=== PATIENT | female | born 1955 | race Caucasian/White ===

== ENCOUNTER 2016-12-13 00:11 | Inpatient (IN) | payer OTHER ==
--- NOTE | 2016-12-13 00:58 | PDOC ---
History of Present Illness - History of Present Illness Initial Comments: 12/13/16 00:59 The patient is a 61 year old female with history of hypertension who presents to the ED complaining of nausea and multiple episodes of nonbloody nonbilious vomiting that began last night with associated epigastric discomfort, lightheadedness and generalized weakness. The patient states she ate tilapia which seemed "off" last night prior to the onset of her symptoms. She vomited approximately 3 times last night, now improved. Since then she has been drinking pedialyte and water but continues to feel unwell. Her blood pressure was noted to be around 90/60 at home today. The patient also endorses dysuria, but denies hematuria. She denies fever, chills, or recent illness. She denies constipation or diarrhea. She denies chest pain or shortness of breath. She denies cough or wheezing. No sick contacts or antibiotic use. PCP: Dr. Lorene Samuel <Tuyet Rueda - Last Filed: 12/13/16 01:38> - General History Source: Patient Exam Limitations: No Limitations <Nick Pitts - Last Filed: 12/13/16 02:03> - General Chief Complaint: Blood Pressure Problem Stated Complaint: BLOOD PRESSURE PROBLEM Time Seen by Provider: 12/13/16 00:47 Past History <Tuyet Rueda - Last Filed: 12/13/16 01:38> - Past Medical History HTN: Yes - Psycho/Social/Smoking Cessation Hx Suicidal Ideation: No Smoking History: Never smoked <Nick Pitts - Last Filed: 12/13/16 02:03> - Past Medical History Allergies/Adverse Reactions: Allergies Allergy/AdvReac Type Severity Reaction Status Date / Time No Known Allergies Allergy Verified 12/13/16 00:22 Home Medications: Ambulatory Orders Losartan Potassium [Cozaar -] 50 mg PO DAILY 08/14/16 Review of Systems - Review of Systems Able to Perform ROS?: Yes Comments:: 12/13/16 01:03 GENERAL/CONSTITUTIONAL: No fever or chills. +generalized weakness. HEAD, EYES, EARS, NOSE AND THROAT: No change in vision. No ear pain or discharge. No sore throat CARDIOVASCULAR: +lightheadedness. No chest pain or shortness of breath. RESPIRATORY: No cough, wheezing, or hemoptysis. GASTROINTESTINAL: +nausea, NBNB vomiting (improved), epigastric discomfort. + melena. No diarrhea or constipation. GENITOURINARY: +dysuria. No hematuria. MUSCULOSKELETAL: No joint or muscle swelling or pain. No neck or back pain. SKIN: No rash NEUROLOGIC: No headache, vertigo, loss of consciousness, or change in strength/ sensation. ENDOCRINE: No increased thirst. No abnormal weight change. HEMATOLOGIC/LYMPHATIC: No anemia, easy bleeding, or history of blood clots. ALLERGIC/IMMUNOLOGIC: No hives or skin allergy. <Tuyet Rueda - Last Filed: 12/13/16 01:38> *Physical Exam - Vital Signs Last Vital Signs Temp Pulse Resp BP Pulse Ox 99.3 F 98 H 18 115/48 97 12/13/16 00:19 12/13/16 00:19 12/13/16 00:19 12/13/16 00:19 12/13/16 00:19 - Physical Exam Comments: 12/13/16 01:19 GENERAL: Awake, alert, and fully oriented, in no acute distress HEAD: No signs of trauma EYES: PERRLA, EOMI, sclera anicteric, conjunctiva clear ENT: Auricles normal inspection, hearing grossly normal, nares patent, oropharynx clear without exudates. Dry mucous membranes. NECK: Normal ROM, supple, no lymphadenopathy, JVD, or masses LUNGS: Breath sounds equal, clear to auscultation bilaterally. No wheezes, and no crackles HEART: Regular rate and rhythm, normal S1 and S2, no murmurs, rubs or gallops ABDOMEN: Epigastric tenderness to palpation. Soft, normoactive bowel sounds. No guarding, no rebound. No masses EXTREMITIES: Normal range of motion, no edema. No clubbing or cyanosis. No cords, erythema, or tenderness NEUROLOGICAL: Cranial nerves II through XII grossly intact. Normal speech, normal gait SKIN: Warm, Dry, normal turgor, no rashes or lesions noted. RECTAL: external hemorrhoids, dark brown stool. <Tuyet Rueda - Last Filed: 12/13/16 01:38> - Vital Signs Last Vital Signs Temp Pulse Resp BP Pulse Ox 99.3 F 98 H 18 115/48 97 12/13/16 00:19 12/13/16 00:19 12/13/16 00:19 12/13/16 00:19 12/13/16 00:19 <Nick Pitts - Last Filed: 12/13/16 02:03> Heart Score/ECG Review #1 ECG reviewed & interpreted by me at: 01:25 12/13/16 01:34 NSR 87, submm STD II, aVF, no kahlil, QTC 450 msec <Nick Pitts - Last Filed: 12/13/16 02:03> ED Treatment Course - LABORATORY CBC & Chemistry Diagram: 12/13/16 01:07 12/13/16 01:07 <Tuyet Rueda - Last Filed: 12/13/16 01:38> - LABORATORY CBC & Chemistry Diagram: 12/13/16 01:07 12/13/16 01:07 <Nick Pitts - Last Filed: 12/13/16 02:03> Medical Decision Making - Medical Decision Making 12/13/16 01:12 A portion of this note was documented by scribe services under my direction. I have reviewed the details of the note, within reason, and agree with the documentation with the following case summary and management plan written by me. Patient treated in the ED. Nursing notes are reviewed and incorporated into the medical decision-making. Vital signs reviewed. Peripheral IV access obtained by the nurse, laboratory studies are drawn and sent, reviewed and interpreted by myself. Vital Signs Temp Pulse Resp BP Pulse Ox 99.3 F 98 H 18 115/48 97 12/13/16 00:19 12/13/16 00:19 12/13/16 00:19 12/13/16 00:19 12/13/16 00:19 61-year-old female with past medical history of hypertension presents with nausea, vomiting since yesterday. The patient had eaten some [place] and since then has been feeling unwell, lightheaded and vomiting up to 3 times. Reports some epigastric discomfort with nausea. She reports decreased appetite. She's been feeling lightheaded and generally weak. Denies any chest pain. Patient reported that she took her blood pressure was 93/60 today. I suspect the patient may having food poisoning or acute gastroenteritis. Low blood pressures likely secondary to hypovolemia. We'll give IV fluids and treat symptoms. Obtain labs. Obtain EKG. Workup is negative patient reports feeling better, supportive care and follow-up with PMD. 12/13/16 01:20 Pt is also complaining of dysuria. Will r/o UTI. 12/13/16 01:34 CBC, BMP 12/13/16 01:07 Patient is noted to have hemoglobin 6.1. When the patient was ambulatory today, patient was feeling short of breath on exertion. I have asked the patient whether that she's been having dark stools, which she reports that she has. Patient has no known knowledge of prior GI bleeds. I had initiated protonix bolus and drip for UGIB. Stool occult sent. Stool appeared dark (dark brown) in nature. +external hemorrhoids but no tears. Risks and benefits were discussed with the patient regarding blood transfusions , including infection, blood transfusion reactions. The patient consents for blood transfusion. 2u PRBC ordered. 12/13/16 01:48 Guiac positive. 12/13/16 01:51 CBC, BMP 12/13/16 01:07 12/13/16 01:07 CMP Sodium 140 mmol/L (136-145) 12/13/16 01:07 Potassium 3.5 mmol/L (3.5-5.1) 12/13/16 01:07 Chloride 102 mmol/L (98-107) 12/13/16 01:07 Carbon Dioxide 27 mmol/L (21-32) 12/13/16 01:07 Anion Gap 11 (8-16) 12/13/16 01:07 BUN 30 mg/dL (7-18) H 12/13/16 01:07 Creatinine 0.6 mg/dL (0.55-1.02) 12/13/16 01:07 Creat Clearance w eGFR > 60 (>60) 12/13/16 01:07 Random Glucose 154 mg/dL (74-106) H 12/13/16 01:07 Calcium 7.7 mg/dL (8.5-10.1) L 12/13/16 01:07 Total Bilirubin 0.1 mg/dL (0.2-1.0) L 12/13/16 01:07 AST 10 U/L (15-37) L 12/13/16 01:07 ALT 21 U/L (12-78) 12/13/16 01:07 Total Protein 5.8 g/dl (6.4-8.2) L 12/13/16 01:07 Albumin 2.9 g/dl (3.4-5.0) L 12/13/16 01:07 Lipase 93 U/L (73-393) 12/13/16 01:07 Urine Test Results Urine Color Ltyellow 12/13/16 01:20 Urine Appearance Clear 12/13/16 01:20 Urine pH 5.0 (5.0-8.0) 12/13/16 01:20 Ur Specific [place] 1.024 (1.001-1.035) 12/13/16 01:20 Urine Protein Negative (NEGATIVE) 12/13/16 01:20 Urine Glucose (UA) Negative (NEGATIVE) 12/13/16 01:20 Urine Ketones Negative (NEGATIVE) 12/13/16 01:20 Urine Blood Negative (NEGATIVE) 12/13/16 01:20 Urine Nitrite Negative (NEGATIVE) 12/13/16 01:20 Urine Bilirubin Negative (NEGATIVE) 12/13/16 01:20 Ur Leukocyte Esterase 1+ (NEGATIVE) H 12/13/16 01:20 1+ leuk but with dysuria. Will treat as UTI. Urine culture. Ceftriaxone. Hospitalist paged for admission. 12/13/16 02:[address] Castillo. Accepted under med/surg admission. <Nick Pitts - Last Filed: 12/13/16 02:03> *DC/Admit/Observation/Transfer - Attestations Scribe Attestion: 12/13/16 01:19 Documentation prepared by Tuyet Rueda, acting as medical policy specialist for Nick Pitts MD. <Tuyet Rueda - Last Filed: 12/13/16 01:38> - Discharge Dispostion Admit: Yes <Nick Pitts - Last Filed: 12/13/16 02:03> Diagnosis at time of Disposition: UGIB (upper gastrointestinal bleed) Anemia Qualifiers: Anemia type: unspecified type Qualified Code(s): D64.9 - Anemia, unspecified UTI (urinary tract infection) Qualifiers: Urinary tract infection type: site unspecified Hematuria presence: without hematuria Qualified Code(s): N39.0 - Urinary tract infection, site not specified - Discharge Dispostion Condition at time of disposition: Fair - Referrals Referrals: Lorene Samuel MD [Primary Care Provider] -
[2016-12-13] MEDS ORDERED: ACETAMINOPHEN 325 MG TABLET (FP) PO ONE (00:59)
[2016-12-13] MEDS ORDERED: SODIUM CHLORIDE 1,000 ML IV STA (00:59)
[2016-12-13] MEDS ORDERED: FAMOTIDINE 20 MG/50 ML IVPB 50 ML IVPB ONE ×2 (00:59→01:06)
[2016-12-13] MEDS ORDERED: MAG HYDROX/AL HYDROX/SIMETH 30 ML UNIT-DOSE CUP PO ONE (00:59)
[2016-12-13] MEDS ORDERED: ACETAMINOPHEN 325 MG TABLET (FP) ONE (01:06)
[2016-12-13] MEDS ORDERED: ONDANSETRON 4 MG/2 ML VIAL IVPB ONE (01:14)
[2016-12-13] MEDS ORDERED: MAG HYDROX/AL HYDROX/SIMETH 30 ML UNIT-DOSE CUP ONE (01:16)
[2016-12-13 01:18] LABS: BASOPHIL 0.5 % (0-2.0)
[2016-12-13 01:22] LABS: EOSINOPHIL 1.5 % (0-4.5); MCHC 33.7 g/dl (32.0-36.0); MEAN PLT VOLUME 7.7 fl (7.5-11.1); NEUTROPHILS 65.1 % (42.8-82.8); PLATELET COUNT 241 K/MM3 (134-434); RDW 13.4 % (11.6-15.6); WHITE BLOOD COUNT 11.7 K/mm3 (4.0-10.0)
[2016-12-13] MEDS ORDERED: PANTOPRAZOLE SODIUM 40 MG in SODIUM CHLORIDE 100 ML IVPB ONE (01:32)
[2016-12-13 01:38] LABS: URINE APPEARANCE CLEAR; URINE BILIRUBIN NEGATIVE (NEGATIVE); URINE BLOOD NEGATIVE (NEGATIVE); URINE COLOR LTYELLOW; URINE GLUCOSE (UA) NEGATIVE (NEGATIVE); URINE KETONE NEGATIVE (NEGATIVE); URINE NITRITE NEGATIVE (NEGATIVE); URINE PROTEIN NEGATIVE (NEGATIVE); URINE UROBILINOGEN NEGATIVE E.U./dl (0.2-1.0)
[2016-12-13 01:43] LABS: URINE LEUK ESTERASE 1+ (NEGATIVE)
[2016-12-13 01:44] LABS: ALBUMIN 2.9 g/dl (3.4-5.0); ANION GAP 11 (8-16); BILIRUBIN,TOTAL 0.1 mg/dL (0.2-1.0); CALCIUM 7.7 mg/dL (8.5-10.1); CO2 27 mmol/L (21-32); CREATININE 0.6 mg/dL (0.55-1.02); GLUCOSE,RANDOM 154 mg/dL (74-106); SGOT/AST 10 U/L (15-37); SGPT/ALT 21 U/L (12-78); TOT PROT 5.8 g/dl (6.4-8.2)
[2016-12-13 01:47] LABS: ALK PHOS 56 U/L (45-117); TROPONIN I < 0.02 ng/ml (0.00-0.05)
[2016-12-13] MEDS ORDERED: CEFTRIAXONE 1 GM in DEXTROSE 5%-WATER - 50 ML IVPB ONE (01:48)
[2016-12-13 01:57] LABS: URINE BACTERIA FEW /hpf (NONE SEEN); URINE HYALINE CAST 4 /lpf; URINE MUCUS FEW; URINE RBC 1 /hpf (0-3); URINE WBC 11 /hpf (3-5)
[2016-12-13 02:00] LABS: INR 1.19 (0.82-1.09); PROTHROMBIN TIME (PATIENT) 13.1 SEC (9.98-11.88)
[2016-12-13 02:02] LABS: ACTIVATED PTT 27.5 SECONDS (26.9-34.4)
[2016-12-13] MEDS ORDERED: ONDANSETRON 4 MG/2 ML VIAL ONE (02:05)
--- NOTE | 2016-12-13 02:07 | PN ---
<Panchito Castillo - Last Filed: 12/13/16 02:06> Teaching Attending Note Name of Resident: Evelio Samuel ATTENDING PHYSICIAN STATEMENT I saw and evaluated the patient. I reviewed the resident's note and discussed the case with the resident. I agree with the resident's findings and plan as documented. SUBJECTIVE: OBJECTIVE: ASSESSMENT AND PLAN: <Nicky Zaldivar - Last Filed: 12/13/16 03:36> Teaching Attending Note ATTENDING PHYSICIAN STATEMENT I saw and evaluated the patient. I reviewed the resident's note and discussed the case with the resident. I agree with the resident's findings and plan as documented. SUBJECTIVE: Patient is a 61 yo F with a PMHx of HTN who presents with nausea and multiple episodes of vomiting for one day with associated mild epigastric soreness. Patient had 3 episodes of nonbloody nonbilious vomiting that started last night at 9pm after she ate tilapia. Patient reports her epigastric pain is related to the vomiting. Denies ibuprofen and NSAID use. Never had an EGD. Patient also notes a bitter metallic taste in her mouth for past 4 months. Denies blood in stool or any other bleeding. Patient also reports increased frequency in urination. Denies recent travel. Surgical Hx: Gallbladder removal and 2 caesareans Social Hx: None OBJECTIVE: Last Vital Signs Temp Pulse Resp BP Pulse Ox 98.3 F 93 H 18 128/64 98 12/13/16 03:00 12/13/16 03:00 12/13/16 03:00 12/13/16 03:00 12/13/16 03:30 GENERAL: Awake, alert, and fully oriented, in no acute distress. HEENT: Atraumatic. Moist mucosa. Normocephalic. No sinus tenderness. No LAD. NECK: No JVD. No thyroid masses. Supple. LUNGS: Clear to auscultation bilaterally. No wheezing, rhonchi or rales. HEART: Regular rate and rhythm, normal S1 and S2, no murmurs, rubs or gallops, peripheral pulses normal and equal bilaterally. ABDOMEN: Soft, nontender, normoactive bowel sounds. No guarding, no rebound. No Masses. MUSCULOSKELETAL: No joint tenderness or erythema. No muscle tenderness. Normal muscle bulk and tone. EXTREMITIES: Normal inspection, No edema. No clubbing or cyanosis. Moves all extremities. NEUROLOGICAL: Normal speech, no focal sensorimotor deficits. SKIN: Warm, dry, normal turgor, no rashes or lesions noted. CBCD WBC 11.7 K/mm3 (4.0-10.0) H 12/13/16 01:07 RBC 2.11 M/mm3 (3.60-5.2) L 12/13/16 01:07 Hgb 6.1 GM/dL (10.7-15.3) L* 12/13/16 01:07 Hct 18.1 % (32.4-45.2) L 12/13/16 01:07 MCV 86.0 fl (80-96) 12/13/16 01:07 MCHC 33.7 g/dl (32.0-36.0) 12/13/16 01:07 RDW 13.4 % (11.6-15.6) 12/13/16 01:07 Plt Count 241 K/MM3 (134-434) 12/13/16 01:07 MPV 7.7 fl (7.5-11.1) 12/13/16 01:07 CMP Sodium 140 mmol/L (136-145) 12/13/16 01:07 Potassium 3.5 mmol/L (3.5-5.1) 12/13/16 01:07 Chloride 102 mmol/L (98-107) 12/13/16 01:07 Carbon Dioxide 27 mmol/L (21-32) 12/13/16 01:07 Anion Gap 11 (8-16) 12/13/16 01:07 BUN 30 mg/dL (7-18) H 12/13/16 01:07 Creatinine 0.6 mg/dL (0.55-1.02) 12/13/16 01:07 Creat Clearance w eGFR > 60 (>60) 12/13/16 01:07 Calcium 7.7 mg/dL (8.5-10.1) L 12/13/16 01:07 Total Bilirubin 0.1 mg/dL (0.2-1.0) L 12/13/16 01:07 AST 10 U/L (15-37) L 12/13/16 01:07 ALT 21 U/L (12-78) 12/13/16 01:07 Alkaline Phosphatase 56 U/L (45-117) 04/02/17 01:07 Total Protein 5.8 g/dl (6.4-8.2) L 12/13/16 01:07 Albumin 2.9 g/dl (3.4-5.0) L 12/13/16 01:07 ECG NSR @87 bpm with no T wave inversion or ST elevations ASSESSMENT AND PLAN: Patient is a 61 yo F with a PMHx of HTN who presents with nausea vomiting and epigastric pain found to have symptomatic anemia. 1.) Normocytic anemia likely secondary to upper GI bleed -Send type and screen x2 -Send ferritin iron studies, vitamin B12 level, LDH, haptoglobin, red blood smear -Transfuse 1 unit of PRBC for goal of 7 mg/dl 2.) Likely Upper GI bleed with severe anemia and positive FOBT -NPO -IVF hydration -Protonix 40 mg IV Q 12 -Avoid aspirin and heparin -Send stool for H pylori -Avoid NSAIDS -GI consult for EGD -Chest X-Ray 3.) HTN -Hold losartan due to borderline hypotension 4.) Systolic murmur. No transthoracic echos previously -TTE DVT ppx -Low risk -SCDs Documentation prepared by Nicky Zaldivar, acting as paramedical aide for Panchito Castillo M.D.
[2016-12-13] MEDS ORDERED: PANTOPRAZOLE SODIUM 40 MG VIAL ONE ×2 (02:11→02:57)
[2016-12-13] MEDS ORDERED: CEFTRIAXONE 50 ML ONE (02:11)
--- NOTE | 2016-12-13 03:16 | HP ---
CHIEF COMPLAINT: Nausea and vomiting PCP: Dr. Lorene Samuel HISTORY OF PRESENT ILLNESS: 61 y/o German speaking F w/PMH of HTN presents to ER w/ c/o nausea and vomiting and abdominal pain. History translated by pt's son who was at bedside. Nausea and vomiting began yesterday night and she had 3 episodes of non-bloody, non-bilious vomiting. She states she ate some tilapia but otherwise diet has been regular and not changed. She c/o epigastric soreness which she states is due to her vomiting. She has also had light-headedness and generalized weakness since yesterday night as well. Her son measured her BP last night and it was approximately 94/64 at home. Last BM was day before yesterday and she states that it was normal with no blood in stool. She has also had a bitter taste in her mouth for the last 3-4 months and acid reflux for the last 6 months has taken milk of magnesia to alleviate the acid reflux. She had colonoscopy 3 years ago with no notes of any polyps and was told to f/u in 10 years for next colonoscopy. She denies any recent history of anemia and this is the first time she has had her presenting symptoms. She last saw her PCP in Aug 2016 and no notes of low blood count or anemia were made at that time. She denies any recent travel history or any sick contacts. Pt reported some dysuria over the last 3-4 months as well and states that she drank more water lately to help alleviate the dysuria. ER course was notable for: (1) CXR, EKG, ceftriaxone, iv protonix, UA (1+ LE), Hgb 6.1 (2) (3) Recent Travel: denies PAST MEDICAL HISTORY: HTN PAST SURGICAL HISTORY: cholecystectomy, x2 Social History: Smoking: denies Alcohol: rarely Drugs: denies Family History: denies any family history Allergies No Known Allergies Allergy (Verified 12/13/16 00:22) HOME MEDICATIONS: Home Medications Medication Instructions Recorded Losartan Potassium [Cozaar -] 50 mg PO DAILY 08/14/16 REVIEW OF SYSTEMS CONSTITUTIONAL: generalized weakness Absent: fever, chills, diaphoresis, malaise, loss of appetite, weight change HEENT: Absent: rhinorrhea, nasal congestion, throat pain, throat swelling, difficulty swallowing, mouth swelling, ear pain, eye pain, visual changes CARDIOVASCULAR: lightheadedness Absent: chest pain, syncope, palpitations, irregular heart rate, peripheral edema RESPIRATORY: Absent: cough, shortness of breath, dyspnea with exertion, orthopnea, wheezing, stridor, hemoptysis GASTROINTESTINAL: abd soreness, nausea, vomiting Absent: abdominal distension, diarrhea, constipation, melena, hematochezia GENITOURINARY: dysuria Absent: frequency, urgency, hesitancy, hematuria, flank pain, genital pain MUSCULOSKELETAL: Absent: myalgia, arthralgia, joint swelling, back pain, neck pain SKIN: Absent: rash, itching, pallor HEMATOLOGIC/IMMUNOLOGIC: Absent: easy bleeding, easy bruising, lymphadenopathy, frequent infections ENDOCRINE: Absent: unexplained weight gain, unexplained weight loss, heat intolerance, cold intolerance NEUROLOGIC: Absent: headache, focal weakness or paresthesias, dizziness, unsteady gait, seizure, mental status changes, bladder or bowel incontinence PSYCHIATRIC: Absent: anxiety, depression, suicidal or homicidal ideation, hallucinations. PHYSICAL EXAMINATION GENERAL: Awake, alert, and fully oriented, in no acute distress. HEAD: Normal with no signs of trauma. EYES: extraocular movements intact, sclera anicteric, pallor of conjunctiva. No lid lag. EARS, NOSE, THROAT: Ears normal, nares patent, oropharynx clear without exudates. NECK: Normal range of motion, supple without lymphadenopathy, JVD, or masses. LUNGS: Breath sounds equal, clear to auscultation bilaterally. No wheezes, and no crackles. No accessory muscle use. HEART: Regular rate and rhythm, normal S1 and S2, 3/6 systolic murmur heard in all regions ABDOMEN: Soft, obese, mild epigastric tenderness, not distended, hypoactive bowel sounds, no guarding, no rebound, no masses. No hepatomegaly or splenomegaly. MUSCULOSKELETAL: Normal range of motion at all joints. No bony deformities or tenderness. No CVA tenderness. LOWER EXTREMITIES: 2+ pulses, warm, well-perfused. No calf tenderness. No peripheral edema. NEUROLOGICAL: Cranial nerves II-XII intact. Normal speech. Normal gait. PSYCHIATRIC: Cooperative. Good eye contact. Appropriate mood and affect. SKIN: Warm, dry, normal turgor, no rashes or lesions noted, normal capillary refill. Pallor of skin CBCD WBC 11.7 K/mm3 (4.0-10.0) H 04/02/17 01:07 RBC 2.11 M/mm3 (3.60-5.2) L 12/13/16 01:07 Hgb 6.1 GM/dL (10.7-15.3) L* 12/13/16 01:07 Hct 18.1 % (32.4-45.2) L 12/13/16 01:07 MCV 86.0 fl (80-96) 12/13/16 01:07 MCHC 33.7 g/dl (32.0-36.0) 12/13/16 01:07 RDW 13.4 % (11.6-15.6) 12/13/16 01:07 Plt Count 241 K/MM3 (134-434) 12/13/16 01:07 MPV 7.7 fl (7.5-11.1) 12/13/16 01:07 CMP Sodium 140 mmol/L (136-145) 12/13/16 01:07 Potassium 3.5 mmol/L (3.5-5.1) 12/13/16 01:07 Chloride 102 mmol/L (98-107) 12/13/16 01:07 Carbon Dioxide 27 mmol/L (21-32) 12/13/16 01:07 Anion Gap 11 (8-16) 12/13/16 01:07 BUN 30 mg/dL (7-18) H 12/13/16 01:07 Creatinine 0.6 mg/dL (0.55-1.02) 12/13/16 01:07 Creat Clearance w eGFR > 60 (>60) 12/13/16 01:07 Random Glucose 154 mg/dL (74-106) H 12/13/16 01:07 Calcium 7.7 mg/dL (8.5-10.1) L 12/13/16 01:07 Total Bilirubin 0.1 mg/dL (0.2-1.0) L 12/13/16 01:07 AST 10 U/L (15-37) L 12/13/16 01:07 ALT 21 U/L (12-78) 12/13/16 01:07 Alkaline Phosphatase 56 U/L (45-117) 12/13/16 01:07 Total Protein 5.8 g/dl (6.4-8.2) L 12/13/16 01:07 Albumin 2.9 g/dl (3.4-5.0) L 12/13/16 01:07 CARDIAC ENZYMES Creatine Kinase 50 IU/L (26-192) 12/13/16 01:07 Troponin I < 0.02 ng/ml (0.00-0.05) 12/13/16 01:07 Laboratory Tests 12/13/16 12/13/16 12/13/16 01:07 01:29 03:30 Hemoglobin A1c % Pending Troponin I < 0.02 Lipase 93 Stool Occult Blood Positive Urine Test Results Urine Color Ltyellow 12/13/16 01:20 Urine Appearance Clear 12/13/16 01:20 Urine pH 5.0 (5.0-8.0) 12/13/16 01:20 Ur Specific [place] 1.024 (1.001-1.035) 12/13/16 01:20 Urine Protein Negative (NEGATIVE) 12/13/16 01:20 Urine Glucose (UA) Negative (NEGATIVE) 12/13/16 01:20 Urine Ketones Negative (NEGATIVE) 12/13/16 01:20 Urine Blood Negative (NEGATIVE) 12/13/16 01:20 Urine Nitrite Negative (NEGATIVE) 12/13/16 01:20 Urine Bilirubin Negative (NEGATIVE) 12/13/16 01:20 Ur Leukocyte Esterase 1+ (NEGATIVE) H 12/13/16 01:20 Urine RBC 1 /hpf (0-3) 12/13/16 01:20 Urine WBC 11 /hpf (3-5) 12/13/16 01:20 Ur Epithelial Cells Rare /hpf (FEW) 12/13/16 01:20 Urine Bacteria Few /hpf (NONE SEEN) 12/13/16 01:20 Urine Mucus Few 12/13/16 01:20 Imaging: CXR: taken, image not up yet EKG: NSR @87 bpm with no T wave inversion or ST elevations Active Medications Pantoprazole Sodium 80 mg/ (Sodium Chloride) 100 mls @ 10 mls/hr IVPB Q10H RENETTA PRN Reason: 8 MG/HR Last Admin: 12/13/16 03:26 Dose: 10 mls/hr Sodium Chloride (Normal Saline -) 1,000 mls @ 100 mls/hr IV ASDIR RENETTA Ondansetron HCl (Zofran Injection) 4 mg IVPUSH Q6H PRN PRN Reason: NAUSEA AND/OR VOMITING ASSESSMENT/PLAN: 61 y/o German speaking F w/PMH of HTN presents to ER w/ c/o nausea and vomiting and abdominal pain. Admitted for anemia secondary to GI bleed. -Anemia secondary to GI bleed -FOBT (+), Hgb 6.1, normocytic anemia -IV protonix; NS @ 100ml/hr -f/u iron studies, b12, folic acid, haptoglobin, ldh, uyen, orthostatics -GI consulted -NPO -stool for h pylori -avoid asa, heparin products -nausea: zofran 4 mg iv q6h prn -Transfuse 1 unit at time, f/u CBC after 1st unit, goal Hgb >7 -New onset murmur -possibly secondary to acute anemia -f/u echo -Dysuria/frequency -hyperglycemic, f/u A1C -f/u gonococcal, chlamydia -Elevated BUN -most likely secondary to GI bleed -monitor -HTN -will hold home losartan at this tie -DVT ppx -SCDs, avoid heparin -GI ppx -IV protonix -FEN -NS @ 100ml/hr -electrolytes wnl -NPO Problem List - Problem (1) Anemia Code(s): D64.9 - ANEMIA, UNSPECIFIED Qualifiers: Anemia type: unspecified type Qualified Code(s): D64.9 - Anemia, unspecified (2) Foreign body sensation in throat Code(s): R09.89 - OTH SYMPTOMS AND SIGNS INVOLVING THE CIRC AND RESP SYSTEMS (3) UGIB (upper gastrointestinal bleed) Code(s): K92.2 - GASTROINTESTINAL HEMORRHAGE, UNSPECIFIED (4) UTI (urinary tract infection) Code(s): N39.0 - URINARY TRACT INFECTION, SITE NOT SPECIFIED Qualifiers: Urinary tract infection type: site unspecified Hematuria presence: without hematuria Qualified Code(s): N39.0 - Urinary tract infection, site not specified Visit type - Emergency Visit Emergency Visit: Yes ED Registration Date: 12/13/16 Care time: The patient presented to the Emergency Department on the above date and was hospitalized for further evaluation of their emergent condition. - New Patient This patient is new to me today: Yes Date on this admission: 12/17/16 - Critical Care Critical Care patient: No
[2016-12-13] MEDS: PANTOPRAZOLE SODIUM 80 MG in SODIUM CHLORIDE 100 ML IVPB SCH ×3 (03:26→22:19)
[2016-12-13] MEDS ORDERED: ONDANSETRON 4 MG/2 ML VIAL IVPUSH PRN (04:05)
[2016-12-13] MEDS ORDERED: SODIUM CHLORIDE 1,000 ML IV SCH (04:15)
[2016-12-13 05:04] VITALS: BMI 32.5
--- NOTE | 2016-12-13 09:36 | PN ---
Progress Note, Physician - Current Medication List Current Medications: Active Medications Pantoprazole Sodium 80 mg/ (Sodium Chloride) 100 mls @ 10 mls/hr IVPB Q10H RENETTA PRN Reason: 8 MG/HR Last Admin: 12/13/16 03:26 Dose: 10 mls/hr Ondansetron HCl (Zofran Injection) 4 mg IVPUSH Q6H PRN PRN Reason: NAUSEA AND/OR VOMITING - Objective Vital Signs: Vital Signs Temperature 98.2 F 12/13/16 05:00 Pulse Rate 85 12/13/16 05:00 Respiratory Rate 18 12/13/16 05:27 Blood Pressure 110/52 12/13/16 05:00 O2 Sat by Pulse Oximetry (%) 98 12/13/16 05:27 Constitutional: Yes: Well Nourished, No Distress, Calm Eyes: Yes: WNL, Conjunctiva Clear HENT: Yes: WNL, Atraumatic, Normocephalic Neck: Yes: WNL, Supple, Trachea Midline Cardiovascular: Yes: WNL, Regular Rate and Rhythm Respiratory: Yes: WNL, Regular, CTA Bilaterally Gastrointestinal: Yes: WNL, Normal Bowel Sounds Musculoskeletal: Yes: WNL Extremities: Yes: WNL Edema: No Integumentary: Yes: WNL Neurological: Yes: WNL, Alert, Oriented ...Motor Strength: WNL Psychiatric: Yes: WNL Labs: INR, PTT INR 1.19 (0.82-1.09) H 12/13/16 01:29 Impression/Plan Impression/Plan: 61 year old woman with HTN admitted for acute blood loss anemia due to upper GI bleed GI bleed -pt has been having nausea and was found to be anemic with melanotic stool on rectal exam -for transfusion fo 2 units pRBC -follow up repeat cbc -follow up GI consult -clear liquid diet at this time UTI -pt complaining of dysuria and found to have WBC of 11 -cont ceftriaxone -follow up cultures Visit type - Emergency Visit Emergency Visit: Yes ED Registration Date: 12/13/16 Care time: The patient presented to the Emergency Department on the above date and was hospitalized for further evaluation of their emergent condition. - New Patient This patient is new to me today: Yes Date on this admission: 12/13/16 - Critical Care Critical Care patient: No
[2016-12-13] MEDS ORDERED: PT OWN MED DRAWER 7, Y5N ONE (10:33)
--- NOTE | 2016-12-13 14:04 | CON.GI ---
Consult Consult Specialty:: GI Referred by:: Dr Boyle Reason for Consultation:: Anemia with guaiac (+) stool - History of Present Illness Chief Complaint: N/V History of Present Illness: 61 F with h/o HTN admitted with h/o N/V and epigastric pain. She denies NSAIDs and is a poor historian but does recount dark stools recently. She had a colonoscopy 4 years ago at [facility] and states she had a polyp removed but doesn' t remember who did it. She is currently guaiac (+) and has a BUN of 30 and a Cr of 0.6 suggesting UGIB. On admission, Hgb 6.1. Surgical Hx: cholecystectomy adn C-sect x 2 - History Source History Provided By: Patient, Medical Record Limitations to Obtaining History: No Limitations - Past Medical History Cardio/Vascular: Yes: HTN - Past Surgical History Past Surgical History: Yes: Cholecystectomy, - Alcohol/Substance Use Hx Alcohol Use: No History of Substance Use: reports: None - Smoking History Smoking history: Never smoked Have you smoked in the past 12 months: No Home Medications - Allergies Allergies/Adverse Reactions: Allergies Allergy/AdvReac Type Severity Reaction Status Date / Time No Known Allergies Allergy Verified 12/13/16 00:22 - Home Medications Home Medications: Ambulatory Orders Aspirin [ASA -] 81 mg PO DAILY #7 tab.chew 12/13/16 Losartan Potassium [Cozaar] 25 mg PO DAILY 1 Days 12/13/16 Physical Exam-GI Vital Signs: Vital Signs Temperature 98.2 F 12/13/16 05:00 Pulse Rate 85 12/13/16 05:00 Respiratory Rate 18 12/13/16 05:27 Blood Pressure 110/52 12/13/16 05:00 O2 Sat by Pulse Oximetry (%) 98 12/13/16 05:27 Constitutional: Yes: Well Nourished, Anxious HENT: Yes: Normocephalic Neck: Yes: Supple Cardiovascular: Yes: Regular Rate and Rhythm Respiratory: Yes: CTA Bilaterally Gastrointestinal Inspection: Yes: WNL ...Auscultate: Yes: Normoactive Bowel Sounds ...Palpate: Yes: Soft, Tenderness, Tenderness, Epigastium (mild.) Labs: INR, PTT INR 1.19 (0.82-1.09) H 12/13/16 01:29 CBC, BMP 12/13/16 01:07 12/13/16 01:07 Assessment/Plan UGIB likely, with mild coagulopathy. Unclear etiology NPO Protonix drip FFP x 2 PRBC x 2 EGD in AM
[2016-12-13 16:56] LABS: MCH 30.1 pg (25.7-33.7); MCHC 34.5 g/dl (32.0-36.0); MEAN CELL VOLUME 87.2 fl (80-96); MEAN PLT VOLUME 8.3 fl (7.5-11.1); PLATELET COUNT 173 K/MM3 (134-434); RDW 13.4 % (11.6-15.6); WHITE BLOOD COUNT 9.3 K/mm3 (4.0-10.0)
[2016-12-14 06:28] LABS: BASOPHIL 0.7 % (0-2.0); EOSINOPHIL 2.9 % (0-4.5); MCH 30.4 pg (25.7-33.7); MCHC 34.7 g/dl (32.0-36.0); MEAN CELL VOLUME 87.6 fl (80-96); MEAN PLT VOLUME 7.3 fl (7.5-11.1); NEUTROPHILS 42.8 % (42.8-82.8); PLATELET COUNT 184 K/MM3 (134-434); RDW 13.8 % (11.6-15.6); WHITE BLOOD COUNT 7.7 K/mm3 (4.0-10.0)
[2016-12-14] MEDS: PANTOPRAZOLE SODIUM 80 MG in SODIUM CHLORIDE 100 ML IVPB SCH ×2 (10:06→21:12)
--- NOTE | 2016-12-14 11:28 | MSN ---
Progress Note (short form) - Note Progress Note: Saw patient this AM. Patient was in no apparent distress. Patient complained of no pain overnight and stated that she was not feeling nauseous or lightheaded. Patient denied F/C, N/V, headache, shortness of breath, chest pain, diarrhea, constipation. Patient is tolerating a clear liquid diet now, but after breakfast she will be switched to NPO. Patient will be continued on IV Ceftriaxone for five more days for continual treatment of her UTI. Per GI Consult, an EGD will be done in the late afternoon to determine if patient has upper GI Bleed Current Medications Generic Name Dose Route Start Last Admin Trade Name Freq PRN Reason Stop Dose Admin Pantoprazole Sodium 80 mg/ 100 mls @ 10 mls/hr 12/13/16 01:45 12/14/16 10:06 Sodium Chloride IVPB 10 mls/hr Q10H RENETTA Administration 8 MG/HR Ondansetron HCl 4 mg 12/13/16 04:05 Zofran Injection IVPUSH Q6H PRN NAUSEA AND/OR VOMITING Vital Signs Period Temp Pulse Resp BP Sys/Sánchez Pulse Ox Last 24 Hr 97.9 F-99.3 F 67-88 18-19 106-121/54-71 96 PHYSICAL EXAM GENERAL: Awake, alert, and oriented. 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 vaginalis (TUSHAR) Cancelled Blood Type O POSITIVE Antibody Screen Negative Direct Antiglob Test Negative Crossmatch See Detail See Detail 12/13/16 12/14/16 15:50 06:00 WBC 9.3 7.7 RBC 2.47 L 2.42 L Hgb 7.4 L D 7.4 L Hct 21.6 L D 21.2 L MCV 87.2 87.6 MCHC 34.5 34.7 RDW 13.4 13.8 Plt Count 173 D 184 MPV 8.3 7.3 L D Neutrophils % 42.8 D Lymphocytes % 45.4 H D Monocytes % 8.2 Eosinophils % 2.9 D Basophils % 0.7 Iron TIBC T. vaginalis (TUSHAR) Blood Type Antibody Screen Direct Antiglob Test Crossmatch Imaging: CXR: New congestive changes, no other changes since last CXR 04/10/10 EKG: Unremarkable ASSESSMENT AND PLAN 61 y/o F with PMHx of HTN presents to ER c/o nausea/vomiting and abdominal pain. Admitted for anemia secondary to possible upper GI bleed 1. Anemia secondary to Upper GI Bleed - Hb 6.1 on admission, already given 2x pRBC, FFPs - Hb 7.4 this AM, transfuse if less than 7 - IV Protonix drip to be continued - Pt on clear liquid diet this AM, will transition to NPO after breakfast - Per GI Consult, EGD to be done in late afternoon - Continue to monitor labs, vitals 2. UTI - WBC 11.7 on admission - WBC 7.7 now, patient afebrile - Patient to be continued on IV Ceftriaxone for five more days - Continue to monitor labs, vitals 3. HTN - Hold Losartan 4. DVT PPx - SCDs Dispo: EGD to be done this afternoon
--- NOTE | 2016-12-14 12:30 | PN ---
Progress Note, Physician - Current Medication List Current Medications: Active Medications Pantoprazole Sodium 80 mg/ (Sodium Chloride) 100 mls @ 10 mls/hr IVPB Q10H RENETTA PRN Reason: 8 MG/HR Last Admin: 12/14/16 10:06 Dose: 10 mls/hr Ceftriaxone Sodium (Rocephin 1gm Ivpb (Pre-Docked)) 50 mls @ 100 mls/hr IVPB DAILY RENETTA Ondansetron HCl (Zofran Injection) 4 mg IVPUSH Q6H PRN PRN Reason: NAUSEA AND/OR VOMITING - Objective Vital Signs: Vital Signs Temperature 98.5 F 12/14/16 06:00 Pulse Rate 67 12/14/16 06:00 Respiratory Rate 18 12/14/16 06:00 Blood Pressure 121/71 12/14/16 06:00 O2 Sat by Pulse Oximetry (%) 96 12/13/16 21:00 Constitutional: Yes: Well Nourished, No Distress, Calm Eyes: Yes: WNL, Conjunctiva Clear HENT: Yes: WNL, Atraumatic, Normocephalic Neck: Yes: WNL, Supple, Trachea Midline Cardiovascular: Yes: WNL, Regular Rate and Rhythm Respiratory: Yes: WNL, Regular, CTA Bilaterally Gastrointestinal: Yes: WNL, Normal Bowel Sounds Musculoskeletal: Yes: WNL Extremities: Yes: WNL Edema: No Integumentary: Yes: WNL Neurological: Yes: WNL, Alert, Oriented ...Motor Strength: WNL Psychiatric: Yes: WNL Labs: CBC, BMP 12/14/16 06:00 INR, PTT INR 1.19 (0.82-1.09) H 12/13/16 01:29 Impression/Plan Impression/Plan: 61 year old woman with HTN admitted for acute blood loss anemia due to upper GI bleed GI bleed -pt has been having nausea and was found to be anemic with melanotic stool on rectal exam -s/p transfusion fo 2 units pRBC but Hb only increased to 7.4 so will transfuse one more unit -GI consult appreciated; for EGD today UTI -pt complaining of dysuria and found to have WBC of 11 -cont ceftriaxone -follow up cultures Visit type - Emergency Visit Emergency Visit: Yes ED Registration Date: 12/13/16 Care time: The patient presented to the Emergency Department on the above date and was hospitalized for further evaluation of their emergent condition. - New Patient This patient is new to me today: No - Critical Care Critical Care patient: No
--- NOTE | 2016-12-14 13:23 | PN ---
Physical Exam: SUBJECTIVE: Patient seen and examined Pt is awake, alert and orineted no abdominal pain no n/v no melena, no hematochezia no weakness, no fatigue OBJECTIVE: Vital Signs Period Temp Pulse Resp BP Sys/Sánchez Pulse Ox Last 24 Hr 98.5 F-99.3 F 67-84 18-19 106-121/54-71 96 GENERAL: The patient is awake, alert, and fully oriented, in no acute distress. HEAD: Normal with no signs of trauma. EYES: PERRL, extraocular movements intact, sclera anicteric, conjunctiva clear. No ptosis. ENT: Ears normal, nares patent, oropharynx clear without exudates, moist mucous membranes. NECK: Trachea midline, full range of motion, supple. LUNGS: Breath sounds equal, clear to auscultation bilaterally, no wheezes, no crackles, no accessory muscle use. HEART: Regular rate and rhythm, S1, S2 with systolic murmur ABDOMEN: Soft,epigastric tender, nondistended, normoactive bowel sounds, no guarding, no rebound, no hepatosplenomegaly, no masses. EXTREMITIES: 2+ pulses, warm, well-perfused, no edema. NEUROLOGICAL: Normal speech, gait not observed. PSYCH: Normal mood, normal affect. SKIN: Warm, dry, normal turgor, no rashes or lesions noted Laboratory Results - last 24 hr 12/13/16 12/13/16 12/13/16 06:00 08:30 15:50 WBC 9.3 RBC 2.47 L Hgb 7.4 L D Hct 21.6 L D MCV 87.2 MCHC 34.5 RDW 13.4 Plt Count 173 D MPV 8.3 Neutrophils % Lymphocytes % Monocytes % Eosinophils % Basophils % Iron Cancelled TIBC Cancelled T. vaginalis (TUSHAR) Cancelled Direct Antiglob Test Negative Crossmatch See Detail 12/14/16 06:00 WBC 7.7 RBC 2.42 L Hgb 7.4 L Hct 21.2 L MCV 87.6 MCHC 34.7 RDW 13.8 Plt Count 184 MPV 7.3 L D Neutrophils % 42.8 D Lymphocytes % 45.4 H D Monocytes % 8.2 Eosinophils % 2.9 D Basophils % 0.7 Iron TIBC T. vaginalis (TUSHAR) Direct Antiglob Test Crossmatch Active Medications Generic Name Dose Route Start Last Admin Trade Name Freq PRN Reason Stop Dose Admin Pantoprazole Sodium 80 mg/ 100 mls @ 10 mls/hr 12/13/16 01:45 12/14/16 10:06 Sodium Chloride IVPB 10 mls/hr Q10H RENETTA Administration 8 MG/HR Ceftriaxone Sodium 50 mls @ 100 mls/hr 12/14/16 12:15 Rocephin 1gm Ivpb (Pre-Docked) IVPB DAILY RENETTA Ondansetron HCl 4 mg 12/13/16 04:05 Zofran Injection IVPUSH Q6H PRN NAUSEA AND/OR VOMITING CBC, BMP 12/14/16 06:00 12/13/16 01:07 ASSESSMENT/PLAN: 61 year old female with pmh of HTN, Acid Reflux present to the ED with complaint of N/V, abdominal pain and epigastric tenderness Pt was found to have a hgb of 6.1 Anemia r/o upper GI bleeding Hbg 6.1 in ED. received 2 unit PRBC. upon repeat hgb was 7.4 One more unit will be given GI consult on the case, Dr Luong EGD scheduled for 2 pm NPO Protonix drip IV fluid with normal saline 100ml/h Zofran PRN No ASA or anticoagulants Will trend CBC Dysuria r/o UTI UA positive for leuk est, wbc 11, bacteria pending chlamydia Amp DNA Pending Gonnorhea TUSHAR T vaginalis TUSHAR urine culture pending ceftriaxone 1 gm Iv daily Systolic Murmur likely rt to anemia Echo was ordered HTN Hold Losartan DVT prophylaxis: SCD FEN Fluid: NS at 100ml/h Electrolytes: no abnormalities Nutrition: NPO Disposition: pending EGD, waiting for hgb to stabilized Visit type - Emergency Visit Emergency Visit: Yes ED Registration Date: 12/13/16 Care time: The patient presented to the Emergency Department on the above date and was hospitalized for further evaluation of their emergent condition. - New Patient This patient is new to me today: Yes - Critical Care Critical Care patient: No - Discharge Referral Referred to [facility] Med P.C.: No
[2016-12-14] MEDS ORDERED: PROPOFOL 20 ML ONE ×2 (13:50)
[2016-12-14] MEDS ORDERED: LIDOCAINE HCL/PF 2% SDV 5ML VIAL ONE (13:50)
--- NOTE | 2016-12-14 14:59 | PN ---
Progress Note (short form) - Note Progress Note: ADDENDUM: S/P EGD with finding of ulcer in the duodenal bulb. No visible vessel and no bleeding. Biopsies taken from the hypertrophic tissue surrounding the ulcer. A small polyp was removed from the GE junction. Await path. Resume diet. Continue protonix IV.
[2016-12-14] MEDS: CEFTRIAXONE 50 ML IVPB SCH (15:30)
[2016-12-15] MEDS: PANTOPRAZOLE SODIUM 80 MG in SODIUM CHLORIDE 100 ML IVPB SCH ×2 (05:05→06:50)
--- NOTE | 2016-12-15 07:10 | EKG ---
Test Reason : Blood Pressure : / mmHG Vent. Rate : 087 BPM Atrial Rate : 087 BPM P-R Int : 156 ms QRS Dur : 086 ms QT Int : 374 ms P-R-T Axes : 051 027 054 degrees QTc Int : 450 ms NORMAL SINUS RHYTHM NONSPECIFIC ST ABNORMALITY INFERIOR LEADS ABNORMAL ECG WHEN COMPARED WITH ECG OF 10-APR-2010 02:22, NONSPECIFIC T WAVE ABNORMALITY Confirmed by CHANCE STARR MD ([id number]) on 12/15/2016 7:10:12 AM Referred By: Confirmed By:CHANCE STARR MD
[2016-12-15 08:15] LABS: MCH 29.8 pg (25.7-33.7); MCHC 34.2 g/dl (32.0-36.0); MEAN CELL VOLUME 87.3 fl (80-96); MEAN PLT VOLUME 7.4 fl (7.5-11.1); PLATELET COUNT 209 K/MM3 (134-434); RDW 14.6 % (11.6-15.6); WHITE BLOOD COUNT 7.5 K/mm3 (4.0-10.0)
[2016-12-15] MEDS: CEFTRIAXONE 50 ML IVPB SCH (10:01)
--- NOTE | 2016-12-15 12:30 | DS ---
Physical Exam: SUBJECTIVE: Patient seen and examined OBJECTIVE: Vital Signs Period Temp Pulse Resp BP Sys/Sánchez Pulse Ox Last 24 Hr 98.7 F-98.9 F 60-74 16-20 101-149/52-67 98-100 PHYSICAL EXAM LABS Laboratory Results - last 24 hr 12/15/16 07:45 WBC 7.5 RBC 2.97 L D Hgb 8.9 L D Hct 25.9 L D MCV 87.3 MCHC 34.2 RDW 14.6 Plt Count 209 MPV 7.4 L CBC, BMP 12/15/16 07:45 12/13/16 01:07 HOSPITAL COURSE: Date of Admission:12/13/16 61 y/o Belgian speaking F w/PMH of HTN presents to ER w/ c/o nausea and vomiting and abdominal pain. History translated by pt's son who was at bedside. Nausea and vomiting began yesterday night and she had 3 episodes of non-bloody, non-bilious vomiting. She states she ate some tilapia but otherwise diet has been regular and not changed. She c/o epigastric soreness which she states is due to her vomiting. She has also had light-headedness and generalized weakness since yesterday night as well. Her son measured her BP last night and it was approximately 94/64 at home. Last BM was day before yesterday and she states that it was normal with no blood in stool. She has also had a bitter taste in her mouth for the last 3-4 months and acid reflux for the last 6 months has taken milk of magnesia to alleviate the acid reflux. She had colonoscopy 3 years ago with no notes of any polyps and was told to f/u in 10 years for next colonoscopy. She denies any recent history of anemia and this is the first time she has had her presenting symptoms. She last saw her PCP in Aug 2016 and no notes of low blood count or anemia were made at that time. She denies any recent travel history or any sick contacts. Pt reported some dysuria over the last 3-4 months as well and states that she drank more water lately to help alleviate the dysuria. ER course was notable for:(1) CXR, EKG, ceftriaxone, iv protonix, UA (1+ LE), Hgb 6.1 61 year old female with pmh of HTN, Acid Reflux present to the ED with complaint of N/V, abdominal pain and epigastric tenderness. Pt was found to have a hgb of 6.1. Pt was disgnosed with Anemia r/o upper GI bleeding. The Hbg 6.1 in ED. received 2 unit PRBC. upon repeat hgb was 7.4. One more unit was given yesterday. Pt was placed NPO, on protonix drip, Normal saline IV fluid at 100ml/h. GI consult on the case, Dr Luong. EGD was done it showed ulcer at the duodenal Bulb and small polyp at the GE junction. Biopsies were taken and sent for pathology. No ASA or anticoagulants. Pt will follow up with Dr Luong within a week to get the pathology report and get further treatment. Pt will be on Protonix PO in the meantime for 14 days. Pt also c/o dysuria . A disgnosis of Dysuria r/o UTI was made. UA positive for leuk est, wbc 11, bacteria. Pt was treated with ceftriaxone 1 gm Iv daily for 3 days. Urine culture was negative. On admission chlamydia Amp DNA, Gonnorhea TUSHAR, T vaginalis TUSHAR was sent pending results.Will follow up result and call if treatment is needed. Resume Losartan. follow up with Primary care physician within a week Date of Discharge: 12/15/16 Minutes to complete discharge: 40 Discharge Summary Reason For Visit: ANEMIA, UTI, UGIB Current Active Problems Anemia (Acute) UGIB (upper gastrointestinal bleed) (Acute) UTI (urinary tract infection) (Acute) Condition: Stable - Instructions Diet, Activity, Other Instructions: Discharge Home Resume home activity Resume home diet, avoid spicy, irritating food. Start Protonix 40mg orally twice per day Hold Aspirin until your cardiology consultant say it is ok to resume it Follow up with your primary care physician Follow up with Gastroeneterologist within 1 week to get the pathology result of your EGD and further treatment for your duodenal ulcer If you start having a fatigue, dizziness, generalized weakness. If you start having black stool, bloody stool, bloody vomitus, please call your Primary care physician, [employer] Generating [employer] or come back to the emergency department Referrals: Frederic Luong MD [Staff Physician] - 1 Week Lorene Samuel MD [Primary Care Provider] - 1 Week Disposition: HOME - Home Medications Comprehensive Discharge Medication List: Ambulatory Orders Aspirin [ASA -] 81 mg PO DAILY #7 tab.chew 12/13/16 Losartan Potassium [Cozaar] 25 mg PO DAILY 1 Days 12/13/16 This patient is new to me today: Yes Emergency Visit: Yes ED Registration Date: 12/13/16 Care time: The patient presented to the Emergency Department on the above date and was hospitalized for further evaluation of their emergent condition. Critical Care patient: No - Discharge Referral Referred to [facility] Med P.C.: No
[2016-12-15 12:49] VITALS: BP 130/65; PULSE 68; TEMP 98.4
--- NOTE | 2016-12-15 16:56 | PN ---
Teaching Attending Note Name of Resident: Kole Durant ATTENDING PHYSICIAN STATEMENT I saw and evaluated the patient. I reviewed the resident's note and discussed the case with the resident. I agree with the resident's findings and plan as documented. SUBJECTIVE:currently asymptomatic. tolerating diet. denies CP, SOB, fever, chills, hemoptysis, melena or BRBPR OBJECTIVE: Last Vital Signs Temp Pulse Resp BP Pulse Ox 98.4 F 68 18 130/65 98 12/15/16 11:00 12/15/16 11:00 12/15/16 11:00 12/15/16 11:12/15/16 09:00 General NAD abdomen soft NT/ND ASSESSMENT AND PLAN: 61yo F with PMH HTN presented to the ER and was admitted for further evaluation of their emergent condition 1. Upper GI bleed- s/p EGD yesterday with duodenal ulcer no bleeding or vessel appreciated. will need to f/u with GI for results of Bx. tolerating diet. will convert PPI to po BID. 2. Acute blood loss anemia- s/p 3 units PRBC and 2 FFP this admission with good response. Hgb remained stable. will cont to hold asa until can have repeat EGD to verify improvement in ulcer and re-start at PMD discretion 3. urinary frequency- Symptoms resolved. Ceftriaxone day 3 today. will d/c abx after today 4. D/c home today with GI follow up.
--- NOTE | 2016-12-16 13:55 | PATH ---
Surgical Pathology Report Patient Name: LAURA KANG [facility]. Rec. #: [id number] /Age/Gender: 1955 (Age: 61) / F Account: [id number] Location: [address] [place] [id number] Taken: 12/14/2016 Received: 12/15/2016 Reported: 12/16/2016 Physicians: Petey Espitia Specimen(s) Received A: BX DUODENAL BULB B: BX GE JUNCTION Clinical History GI bleed Polyp at GE junction, ulcer at duodenal bulb Final Diagnosis A. DUODENAL BULB, BIOPSY: DUODENAL MUCOSA WITH FOCAL ACTIVE AND CHRONIC INFLAMMATION, DONAVAN'S GLANDS HYPERPLASIA AND FOCAL GASTRIC METAPLASIA WITH FOCAL SURFACE EROSION CONSISTENT WITH ACTIVE PEPTIC DUODENITIS. NO HISTOLOGIC EVIDENCE OF GLUTEN SENSITIVE ENTEROPATHY (CELIAC DISEASE). B. GE JUNCTION, POLYP, BIOPSY: POLYPOID FRAGMENTS OF COLUMNAR GASTRIC-TYPE MUCOSA WITH ACUTE AND CHRONIC INFLAMMATION AND SURFACE EROSION. NO SQUAMOUS EPITHELIUM PRESENT. NO INTESTINAL METAPLASIA (MORTON'S ESOPHAGUS) OR DYSPLASIA IDENTIFIED. Electronically Signed Avni Hsu M.D. Gross Description A. Received in formalin, labeled "biopsy duodenal bulb" are 2 jorge, irregular portions of soft tissue measuring 0.1 and 0.3 cm in greatest dimension. The specimens are submitted in toto in one cassette. B. Received in formalin, labeled "biopsy polyp at GE junction" is a jorge, irregular portion of soft tissue measuring 0.3 cm in greatest dimension. The specimen is submitted in toto in one cassette. 12/15/201612/15/2016
== END 2016-12-15 13:39 | disposition home or self-care (01) | DRG 253 ==
LOC: JER 00:11 → JERBED 01:52 → J5S 04:44
PROVIDERS: ADMIT Internal Medicine; ATTEND Internal Medicine
PROC: 30233N1 Transfusion of Nonautologous Red Blood Cells into Peripheral Vein, Percutaneous Approach (ICD-10-PCS; 2016-12-13)
PROC: 30233L1 Transfusion of Nonautologous Fresh Plasma into Peripheral Vein, Percutaneous Approach (ICD-10-PCS; 2016-12-13)
PROC: 30233K1 Transfusion of Nonautologous Frozen Plasma into Peripheral Vein, Percutaneous Approach (ICD-10-PCS; 2016-12-13)
PROC: 0DB98ZX Excision of Duodenum, Via Natural or Artificial Opening Endoscopic, Diagnostic (ICD-10-PCS; 2016-12-14)
PROC: 0DB58ZX Excision of Esophagus, Via Natural or Artificial Opening Endoscopic, Diagnostic (ICD-10-PCS; principal; 2016-12-14 14:00)
DX: K92.2 Gastrointestinal hemorrhage, unspecified (principal); N39.0 Urinary tract infection, site not specified; I10 Essential (primary) hypertension; D62 Acute posthemorrhagic anemia; K26.9 Duodenal ulcer, unspecified as acute or chronic, without hemorrhage or perforation; K22.8 Other specified diseases of esophagus; D68.9 Coagulation defect, unspecified; K29.80 Duodenitis without bleeding
CPT/HCPCS: 36415; 36430; 71010-TC; 80053; 81003; 81015; 82272; 82550; 83036; 83690; 84484; 85025; 85027; 85610; 85730; 86850; 86880; 86900; 86901; 86922; 87086; 87491; 87591; 88305-TC; 93005; 93010; 93306-TC; 99284-25; P9017; P9038; P9058

== ENCOUNTER 2017-02-25 12:40 | Emergency (ER) | payer OTHER ==
[2017-02-25 12:47] VITALS: BMI 32.1
[2017-02-25] MEDS ORDERED: ACETAMINOPHEN 325 MG TABLET (FP) ONE (13:25)
[2017-02-25] MEDS ORDERED: ACETAMINOPHEN 325 MG TABLET (FP) PO ONE (13:27)
[2017-02-25] MEDS ORDERED: SODIUM CHLORIDE 1,000 ML IV STA (15:33)
[2017-02-25 15:56] LABS: EOSINOPHIL 0.4 % (0-4.5); MCH 28.6 pg (25.7-33.7); MCHC 33.2 g/dl (32.0-36.0); MEAN PLT VOLUME 7.9 fl (7.5-11.1); NEUTROPHILS 67.3 % (42.8-82.8); PLATELET COUNT 297 K/MM3 (134-434); RDW 13.5 % (11.6-15.6); WHITE BLOOD COUNT 9.2 K/mm3 (4.0-10.0)
[2017-02-25 16:19] LABS: ALBUMIN 3.8 g/dl (3.4-5.0); ANION GAP 9 (8-16); BILIRUBIN,TOTAL 0.6 mg/dL (0.2-1.0); CALCIUM 8.9 mg/dL (8.5-10.1); CO2 26 mmol/L (21-32); CREATININE 0.8 mg/dL (0.55-1.02); GLUCOSE,RANDOM 108 mg/dL (74-106); SGOT/AST 14 U/L (15-37); SGPT/ALT 26 U/L (12-78)
[2017-02-25 16:21] LABS: ALK PHOS 76 U/L (45-117); TROPONIN I < 0.02 ng/ml (0.00-0.05)
[2017-02-25 16:22] LABS: URINE APPEARANCE CLEAR; URINE BILIRUBIN NEGATIVE (NEGATIVE); URINE COLOR YELLOW; URINE GLUCOSE (UA) NEGATIVE (NEGATIVE); URINE KETONE NEGATIVE (NEGATIVE); URINE NITRITE NEGATIVE (NEGATIVE); URINE PROTEIN NEGATIVE (NEGATIVE); URINE UROBILINOGEN NEGATIVE E.U./dl (0.2-1.0)
[2017-02-25 16:35] LABS: VENOUS BLOOD GAS HCO3 19.8 meq/L (19-25); VENOUS PH 7.34 (7.32-7.42)
[2017-02-25 16:36] LABS: URINE BLOOD 2+ (NEGATIVE); URINE LEUK ESTERASE TRACE (NEGATIVE)
[2017-02-25 16:45] VITALS: TEMP 98.7
[2017-02-25 16:45] LABS: URINE MUCUS RARE; URINE RBC <1 /hpf (0-3); URINE WBC 3 /hpf (3-5)
--- NOTE | 2017-02-25 17:12 | PDOC ---
History of Present Illness - General Chief Complaint: Cold Symptoms Stated Complaint: FEVER Time Seen by Provider: 02/25/17 15:03 History Source: Patient Exam Limitations: No Limitations - History of Present Illness Initial Comments: 02/25/17 15:06 61-year-old female presents to the ED with complaints of subjective fever, chills, cough myalgia, and pruritic rash to bilateral arms. Patient denies recent travel, recent illness, recent sick contacts, or medical history. Patient states has not taken anything for the above and decided come to the ER secondary to duration of symptoms. Patient denies shortness of breath, abdominal pain, dysuria, diarrhea, sore throat, ear pain, neck stiffness, lower extremity edema, or nausea. Patient states has been tolerating food without difficulty. Timing/Duration: reports: week Severity: reports: moderate Possible Cause: Yes: no prior episodes Modifying Factors: improves with: coughing Associated Symptoms: reports: cough, fever/chills, muscle aches Past History - Travel Traveled outside of the country in the last 30 days: No Close contact w/someone who was outside of country & ill: No - Past Medical History Allergies/Adverse Reactions: Allergies Allergy/AdvReac Type Severity Reaction Status Date / Time No Known Allergies Allergy Verified 02/25/17 12:45 Home Medications: Ambulatory Orders Losartan Potassium [Cozaar] 25 mg PO DAILY 1 Days 12/13/16 Ferrous Sulfate [Feosol] 325 mg PO DAILY #30 tablet 12/15/16 Pantoprazole Sodium [Protonix -] 40 mg PO BID #28 tablet.ec 12/15/16 HTN: Yes - Surgical History Cholecystectomy: Yes - Psycho/Social/Smoking Cessation Hx Suicidal Ideation: No Smoking History: Never smoked Have you smoked in the past 12 months: No Hx Alcohol Use: No Drug/Substance Use Hx: No Substance Use Type: None Patient Lives Alone: No Lives with/in: spouse/SO Review of Systems - Review of Systems Able to Perform ROS?: Yes Constitutional: Yes: Chills, Fever, Malaise, Weakness HEENTM: No: Symptoms Reported Respiratory: Yes: Cough Cardiac (ROS): No: Symptoms Reported ABD/GI: No: Symptoms Reported : No: Symptoms Reported Musculoskeletal: Yes: Joint Pain, Muscle Pain Integumentary: Yes: Pruritus, Rash Neurological: No: Headache, Dizziness Endocrine: No: Symptoms Reported Hematologic/Lymphatic: No: Symptoms Reported *Physical Exam - Vital Signs Last Vital Signs Temp Pulse Resp BP Pulse Ox 98.7 F 82 20 145/80 98 02/25/17 16:42 02/25/17 16:42 02/25/17 16:42 02/25/17 16:42 02/25/17 16:42 - Physical Exam General Appearance: Yes: Nourished, Appropriately Dressed. No: Apparent Distress HEENT: positive: EOMI, JAYESH, TMs Normal, Pharynx Normal. negative: Pale Conjunctivae Neck: positive: Supple. negative: Lymphadenopathy (R), Lymphadenopathy (L), Rigidity, Tender midline Respiratory/Chest: positive: Lungs Clear, Normal Breath Sounds. negative: Respiratory Distress, Accessory Muscle Use Cardiovascular: positive: Regular Rhythm, Regular Rate. negative: Murmur Gastrointestinal/Abdominal: positive: Soft. negative: Tenderness Extremity: positive: Normal Capillary Refill. negative: Pedal Edema Integumentary: positive: Warm, Moist, Rash (noted scattered papular rash to bilateral arms sparing the palms ) Neurologic: positive: Motor Strength 5/5 Heart Score/ECG Review - History History: Slightly suspicious - Electrocardiogram EKG: Normal - Age Age: 45-65 - Risk Factors Based on the list above the patient has:: No risk factors known - Troponin Troponin: </= normal limit - Score Heart Score - Total: 1 - ECG Intrepretation Rhythm: Regular Rhythm (rate 72. no acute changes.) ED Treatment Course - LABORATORY CBC & Chemistry Diagram: 02/25/17 15:40 02/25/17 15:40 - ADDITIONAL ORDERS Additional order review: Laboratory Results 02/25/17 02/25/17 02/25/17 16:20 15:40 15:40 VBG pH 7.34 POC VBG pCO2 37.3 L POC VBG pO2 59.4 H Mixed VBG HCO3 19.8 Sodium 133 L Potassium 4.0 Chloride 98 Carbon Dioxide 26 Anion Gap 9 BUN 17 D Creatinine 0.8 D Creat Clearance w eGFR > 60 Random Glucose 108 H D Lactic Acid 1.4 Calcium 8.9 Total Bilirubin 0.6 D AST 14 L D ALT 26 D Alkaline Phosphatase 76 D Creatine Kinase 52 Troponin I < 0.02 Total Protein 8.0 D Albumin 3.8 D Urine Color Urine Appearance Urine pH Urine Protein Urine Glucose (UA) Urine Ketones Urine Blood Urine Nitrite Urine Bilirubin Urine Urobilinogen Ur Leukocyte Esterase Urine RBC Urine WBC Ur Epithelial Cells Urine Mucus 02/25/17 15:40 VBG pH POC VBG pCO2 POC VBG pO2 Mixed VBG HCO3 Sodium Potassium Chloride Carbon Dioxide Anion Gap BUN Creatinine Creat Clearance w eGFR Random Glucose Lactic Acid Calcium Total Bilirubin AST ALT Alkaline Phosphatase Creatine Kinase Troponin I Total Protein Albumin Urine Color Yellow Urine Appearance Clear Urine pH 5.0 Urine Protein Negative Urine Glucose (UA) Negative Urine Ketones Negative Urine Blood 2+ H Urine Nitrite Negative Urine Bilirubin Negative Urine Urobilinogen Negative Ur Leukocyte Esterase Trace H D Urine RBC <1 Urine WBC 3 Ur Epithelial Cells Rare Urine Mucus Rare 02/25/17 15:40 RBC 4.12 D MCV 86.0 MCHC 33.2 RDW 13.5 MPV 7.9 Neutrophils % 67.3 D Lymphocytes % 21.0 D Monocytes % 10.3 H Eosinophils % 0.4 D Basophils % 1.0 - RADIOLOGY Radiology Studies Ordered: Category Date Time Status CHEST X-RAY PORTABLE* [RAD] Stat Radiology 02/25/17 15:33 Completed - Medications Given in the ED: ED Medications Discontinued Medications Generic Name Dose Route Start Last Admin Trade Name Freq PRN Reason Stop Dose Admin Acetaminophen 650 mg 02/25/17 13:27 02/25/17 13:27 Tylenol - PO 02/25/17 13:28 650 mg NOW ONE Administration Sodium Chloride 1,000 mls @ 1,000 mls/hr 02/25/17 15:33 02/25/17 15:36 Normal Saline - IV 02/25/17 16:32 1,000 mls/hr ASDIR STA Administration Medical Decision Making - Medical Decision Making 02/25/17 17:11 Patient here with fever for the past 3 days associated with cough for the past week now with pruritic rash since yesterday. Patient on exam had no acute findings. Restorative for septic workup including a rapid strep. Patient ordered for Tylenol IV fluids, chest x-ray and urine. 02/25/17 17:16 Laboratory Tests 02/25/17 02/25/17 02/25/17 15:40 15:40 15:40 WBC 9.2 Hgb 11.8 D Hct 35.4 D Plt Count 297 D Neutrophils % 67.3 D POC VBG pCO2 POC VBG pO2 Sodium 133 L Potassium 4.0 Chloride 98 Carbon Dioxide 26 Anion Gap 9 BUN 17 D Creatinine 0.8 D Creat Clearance w eGFR > 60 Random Glucose 108 H D Lactic Acid Calcium 8.9 AST 14 L D ALT 26 D Troponin I < 0.02 Urine Blood 2+ H Urine Nitrite Negative Ur Leukocyte Esterase Trace H D Urine WBC 3 02/25/17 02/25/17 15:40 16:20 WBC Hgb Hct Plt Count Neutrophils % POC VBG pCO2 37.3 L POC VBG pO2 59.4 H Sodium Potassium Chloride Carbon Dioxide Anion Gap BUN Creatinine Creat Clearance w eGFR Random Glucose Lactic Acid 1.4 Calcium AST ALT Troponin I Urine Blood Urine Nitrite Ur Leukocyte Esterase Urine WBC Chest x-ray negative. Awaiting rapid strep. Will revitalize Selected Entries 02/25/17 02/25/17 16:42 17:40 Temperature 98.7 F 98.7 F Pulse Rate [ 82 Left Radial] Respiratory 20 Rate Blood Pressure 145/80 [Left Arm] O2 Sat by Pulse 98 Oximetry (%) 02/25/17 18:08 rapid strep negative. Patient states feeling much better *DC/Admit/Observation/Transfer - Discharge Dispostion Disposition: HOME Condition at time of disposition: Improved - Referrals Referrals: Lorene Samuel MD [Primary Care Provider] - - Patient Instructions Additional Instructions: Please take Motrin or Tylenol for discomfort and fever. Drink plenty of fluids. rest and follow up with your primary care doctor. Otherwise return to the emergency department if symptoms worsen
[2017-02-25 18:21] VITALS: BP 156/84; PULSE 77
--- NOTE | 2017-02-26 09:42 | EKG ---
Test Reason : Blood Pressure : / mmHG Vent. Rate : 072 BPM Atrial Rate : 072 BPM P-R Int : 158 ms QRS Dur : 088 ms QT Int : 386 ms P-R-T Axes : 032 008 035 degrees QTc Int : 422 ms NORMAL SINUS RHYTHM NORMAL ECG WHEN COMPARED WITH ECG OF 13-DEC-2016 01:24, NO SIGNIFICANT CHANGE WAS FOUND Confirmed by GISSEL PENA MD ([id number]) on 02/26/2017 9:41:54 AM Referred By: Confirmed By:GISSEL PENA MD
== END 2017-02-25 18:21 | disposition home or self-care (01) ==
LOC: JER 12:40
PROC: 3E0337Z Introduction of Electrolytic and Water Balance Substance into Peripheral Vein, Percutaneous Approach (ICD-10-PCS; principal; 2017-02-25)
DX: R50.9 Fever, unspecified (principal); R05 Cough; R21 Rash and other nonspecific skin eruption
CPT/HCPCS: 36415; 71010-TC; 80053; 81003; 81015; 82550; 82803; 83605; 84484; 85025; 87040; 87070; 87086; 87430; 93005; 93010; 99283-25

== ENCOUNTER 2022-03-02 12:29 | Emergency (ER) | payer OTHER ==
[2022-03-02 12:43] VITALS: BP 130/74; PULSE 59; BMI 29.5
[2022-03-02] MEDS ORDERED: ACETAMINOPHEN 1000 MG/100 ML BAG IVPB ONE (13:47)
[2022-03-02] MEDS ORDERED: SODIUM CHLORIDE 0.9% 500 ML INFUS.BAG IV ONE (13:47)
[2022-03-02] MEDS ORDERED: ACETAMINOPHEN INJECTION 100 ML IVPB ONE (14:06)
[2022-03-02 15:27] LABS: HEMATOCRIT 35.9 % (32.4-45.2); HEMOGLOBIN 12.1 GM/dL (10.7-15.3); MCH 29.1 pg (25.7-33.7); MCHC 33.8 g/dl (32.0-36.0); MEAN PLT VOLUME 7.3 fl (7.5-11.1); PLATELET COUNT 347 10^3/uL (134-434); RBC 4.18 M/mm3 (3.60-5.2); RDW 13.6 % (11.6-15.6); WHITE BLOOD COUNT 6.5 K/mm3 (4.0-10.0)
[2022-03-02 16:12] LABS: CALCIUM 9.2 mg/dL (8.5-10.1)
[2022-03-02 16:13] LABS: BLOOD UREA NITROGEN 17.9 mg/dL (7-18)
[2022-03-02 16:16] LABS: CREATININE 0.5 mg/dL (0.55-1.3)
== END 2022-03-02 17:15 | disposition home or self-care (01) ==
LOC: JER 12:29
PROC: 3E0333Z Introduction of Anti-inflammatory into Peripheral Vein, Percutaneous Approach (ICD-10-PCS; principal; 2022-03-02)
DX: R51.9 Headache, unspecified (principal)
CPT/HCPCS: 36415; 70450-TC; 80048; 85027; 93005; 93010; 96374; 99285-25

== ENCOUNTER → 2023-02-03 | Day surgery (SDC) | payer OTHER | END | disposition home or self-care (01) | LOC: JRADUS-SUR 11:59 | PROVIDERS: ATTEND Obstetrics & Gynecology | PROC: 07D63ZX Extraction of Left Axillary Lymphatic, Percutaneous Approach, Diagnostic (ICD-10-PCS; principal; 2023-02-03) | DX: C50.912 Malignant neoplasm of unspecified site of left female breast (principal) | CPT/HCPCS: 19083; 19084; 76098-TC-FY; 77065-TC; 87899; 88305-TC; 88341-TC; 88342-TC; A4648 ==

== ENCOUNTER 2023-04-06 05:23 | Day surgery (SDC) | payer OTHER ==
[2023-03-31 12:58] VITALS: BMI 32.4
[2023-04-06] MEDS ORDERED: ONDANSETRON 4 MG/2 ML VIAL IVPUSH PRN (12:31)
[2023-04-06] MEDS ORDERED: oxyCODONE HCL 5 MG TABLET PO PRN (12:31)
[2023-04-06] MEDS ORDERED: LIDOCAINE HCL/PF 1% SDV 5ML VIAL ONE (12:32)
[2023-04-06] MEDS ORDERED: HEPARIN NA (PORCINE) 5,000 UNITS/ML 1ML VIAL ONE (12:33)
[2023-04-06] MEDS ORDERED: LACTATED RINGERS SOLUTION 1,000 ML IV SCH (12:45)
[2023-04-06] MEDS ORDERED: ceFAZolin SODIUM 1 GM VIAL ONE (12:47)
[2023-04-06] MEDS ORDERED: PROPOFOL 20 ML ONE ×2 (12:47→13:40)
[2023-04-06] MEDS ORDERED: MIDAZOLAM HCL 2 MG/2 ML SINGLE DOSE VIAL ONE ×2 (12:48→13:22)
[2023-04-06] MEDS ORDERED: ceFAZolin SODIUM 1 GM VIAL IVPB ONE (13:07)
[2023-04-06] MEDS ORDERED: DEXAMETHASONE SOD PHOSPHATE 4 MG/1 ML VIAL ONE (13:10)
[2023-04-06] MEDS ORDERED: ONDANSETRON 4 MG/2 ML VIAL ONE (13:10)
[2023-04-06] MEDS ORDERED: LIDOCAINE HCL 1%, 10 MG/ML (50 mL VIAL) INF ONE ×2 (13:18)
[2023-04-06 16:07] VITALS: RESP 16
[2023-04-06 16:58] VITALS: BP 139/82; PULSE 58; TEMP 97.8
== END 2023-04-06 16:40 | disposition home or self-care (01) ==
LOC: JASU-SURG 05:23
PROVIDERS: ATTEND Surgery
PROC: 0JH63WZ Insertion of Totally Implantable Vascular Access Device into Chest Subcutaneous Tissue and Fascia, Percutaneous Approach (ICD-10-PCS; principal; 2023-04-06 12:30)
DX: C50.912 Malignant neoplasm of unspecified site of left female breast (principal)
CPT/HCPCS: 36561; C1788; 71045-TC-FY; 76000-TC-FY; 94760; C1751; J1644

== ENCOUNTER → 2023-04-22 | Day surgery (SDC) | payer OTHER | END | disposition home or self-care (01) | LOC: FRADMRI 08:32 → FRADUS-SUR 08:32 | PROVIDERS: ATTEND Surgery | PROC: 0HBT3ZX Excision of Right Breast, Percutaneous Approach, Diagnostic (ICD-10-PCS; principal; 2023-04-22) | DX: D24.1 Benign neoplasm of right breast (principal); N60.91 Unspecified benign mammary dysplasia of right breast; N64.89 Other specified disorders of breast; N63.10 Unspecified lump in the right breast, unspecified quadrant | CPT/HCPCS: 19085; 76642-TC-LT; 77065-TC; 88305-TC; A4648; A9579; C1887 ==

== ENCOUNTER 2023-04-28 09:33 | Day surgery (SDC) | payer OTHER ==
[2023-04-28] MEDS ORDERED: DEXAMETHASONE SODIUM PHOSPHATE 10 MG in SODIUM CHLORIDE 50 ML IVPB ONE (10:00)
[2023-04-28] MEDS ORDERED: PALONOSETRON HCL 0.25 MG/5 ML VIAL IVPUSH ONE (10:00)
[2023-04-28] MEDS ORDERED: FOSAPREPITANT DIMEGLUMINE 150 MG in SODIUM CHLORIDE 145 ML IVPB ONE (10:00)
[2023-04-28 10:22] LABS: HEMATOCRIT 34.6 % (32.4-45.2); HEMOGLOBIN 11.7 GM/dL (10.7-15.3); MCH 28.9 pg (25.7-33.7); MCHC 33.8 g/dl (32.0-36.0); MEAN CELL VOLUME 85.5 fl (80-96); MEAN PLT VOLUME 7.9 fl (7.5-11.1); PLATELET COUNT 343 10^3/uL (134-434); RBC 4.04 M/mm3 (3.60-5.2); RDW 13.9 % (11.6-15.6); WHITE BLOOD COUNT 12.6 K/mm3 (4.0-10.0)
[2023-04-28] MEDS ORDERED: DOCETAXEL 128 MG in SODIUM CHLORIDE 250 ML IV ONE (10:30)
[2023-04-28 10:56] LABS: ANISOCYTOSIS 0; HELMET CELLS 0; HOWELL-JOLLY BODIES 0; MACROCYTOSIS 0; OVALOCYTE 0; ROULEAU 0; SICKELED CELLS 0; TARGET CELLS 0; TEAR DROP CELLS 0; TOXIC GRANULATION 0
[2023-04-28 11:15] LABS: POTASSIUM 4.8 mmol/L (3.5-5.1)
[2023-04-28 11:17] LABS: ALBUMIN 3.7 g/dl (3.4-5.0); BLOOD UREA NITROGEN 18.8 mg/dL (7-18); CALCIUM 9.6 mg/dL (8.5-10.1)
[2023-04-28 11:20] LABS: BILIRUBIN,DIRECT 0.1 mg/dL (0.0-0.2); CREATININE 0.6 mg/dL (0.55-1.3)
[2023-04-28 11:22] LABS: BILIRUBIN,TOTAL 0.4 mg/dL (0.2-1); TOT PROT 8.2 g/dl (6.4-8.2)
[2023-04-28] MEDS ORDERED: CARBOPLATIN IVPB ONE (11:30)
[2023-04-28] MEDS ORDERED: SODIUM CHLORIDE IVPB ONE ×2 (11:30→13:00)
[2023-04-28] MEDS ORDERED: PERTUZUMAB 840 MG in SODIUM CHLORIDE 250 ML IVPB ONE (12:00)
[2023-04-28] MEDS ORDERED: TRASTUZUMAB ANNS IVPB ONE (13:00)
[2023-04-28 17:08] VITALS: BP 131/67; PULSE 74; RESP 20; TEMP 98.3
[2023-04-28] MEDS ORDERED: PORTA CATH FLUSH 10 ML IVPUSH PRN (17:08)
== END 2023-04-28 17:45 | disposition home or self-care (01) ==
LOC: JONCCHEMO 09:33 → J7W 09:33 → JONCCHEMO 17:45
PROVIDERS: ATTEND Internal Medicine Hematology & Oncology
DX: Z51.11 Encounter for antineoplastic chemotherapy (principal); C50.412 Malignant neoplasm of upper-outer quadrant of left female breast
CPT/HCPCS: 36415; 80048; 80076; 85025; 96367; 96413; 96417; J1453; J2469; J9306; Q5117

== ENCOUNTER 2023-04-29 13:00 | Day surgery (SDC) | payer OTHER ==
[~2023-04-29 13:00] MED LIST: PEGFILGRASTIM-CBQV (UDENYCA) 6 MG/0.6 ML SYRINGE SQ ONE
[2023-04-29 17:26] VITALS: BP 124/63; PULSE 75; RESP 18; TEMP 99.4
== END 2023-04-29 15:45 | disposition home or self-care (01) ==
LOC: JONCCHEMO 13:00 → J7W 15:27 → JONCCHEMO 15:45
PROVIDERS: ATTEND Internal Medicine Hematology & Oncology
PROC: 3E013GC Introduction of Other Therapeutic Substance into Subcutaneous Tissue, Percutaneous Approach (ICD-10-PCS; principal; 2023-04-29)
DX: C50.412 Malignant neoplasm of upper-outer quadrant of left female breast (principal); Z17.0 Estrogen receptor positive status [ER+]; Z76.89 Persons encountering health services in other specified circumstances
CPT/HCPCS: 96372; Q5111

== ENCOUNTER 2023-05-19 08:29 | Day surgery (SDC) | payer OTHER ==
[2023-05-19 09:06] LABS: WHITE BLOOD COUNT 8.1 K/mm3 (4.0-10.0)
[2023-05-19 09:07] LABS: HEMATOCRIT 32.1 % (32.4-45.2); HEMOGLOBIN 10.7 GM/dL (10.7-15.3); MCHC 33.3 g/dl (32.0-36.0); MEAN PLT VOLUME 7.3 fl (7.5-11.1); PLATELET COUNT 459 10^3/uL (134-434); RBC 3.69 M/mm3 (3.60-5.2); RDW 14.7 % (11.6-15.6)
[2023-05-19] MEDS ORDERED: DEXAMETHASONE SODIUM PHOSPHATE 10 MG in SODIUM CHLORIDE 50 ML IVPB ONE (09:30)
[2023-05-19] MEDS ORDERED: FOSAPREPITANT DIMEGLUMINE 150 MG in SODIUM CHLORIDE 145 ML IVPB ONE (09:30)
[2023-05-19] MEDS ORDERED: PALONOSETRON HCL 0.25 MG/5 ML VIAL IVPUSH ONE (09:30)
[2023-05-19 09:32] LABS: CALCIUM 9.6 mg/dL (8.5-10.1); POTASSIUM 4.5 mmol/L (3.5-5.1)
[2023-05-19 09:33] LABS: ALBUMIN 3.8 g/dl (3.4-5.0)
[2023-05-19 09:35] LABS: BILIRUBIN,DIRECT 0.1 mg/dL (0.0-0.2); CREATININE 0.7 mg/dL (0.55-1.3)
[2023-05-19 09:37] LABS: BILIRUBIN,TOTAL 0.4 mg/dL (0.2-1); TOT PROT 7.7 g/dl (6.4-8.2)
[2023-05-19 09:48] LABS: ANISOCYTOSIS 0; HELMET CELLS 0; HOWELL-JOLLY BODIES 0; MACROCYTOSIS 0; OVALOCYTE 0; ROULEAU 0; SICKELED CELLS 0; TARGET CELLS 0; TEAR DROP CELLS 0; TOXIC GRANULATION 0
[2023-05-19] MEDS ORDERED: PERTUZUMAB 420 MG in SODIUM CHLORIDE 250 ML IVPB ONE ×2 (10:00→11:30)
[2023-05-19] MEDS ORDERED: DOCETAXEL 128 MG in SODIUM CHLORIDE 250 ML IV ONE ×2 (10:00→11:30)
[2023-05-19] MEDS ORDERED: TRASTUZUMAB-ANNS 440 MG in SODIUM CHLORIDE 250 ML IVPB ONE ×2 (10:30→12:00)
[2023-05-19] MEDS ORDERED: CARBOPLATIN IVPB ONE (11:00)
[2023-05-19] MEDS ORDERED: SODIUM CHLORIDE IVPB ONE (11:00)
[2023-05-19 16:16] VITALS: RESP 18; TEMP 98.6
[2023-05-19] MEDS ORDERED: PORTA CATH FLUSH 10 ML IVPUSH PRN (16:16)
[2023-05-20 08:26] VITALS: BP 124/61; PULSE 79
== END 2023-05-19 15:00 | disposition home or self-care (01) ==
LOC: JONCCHEMO 08:29 → J7W 08:46 → JONCCHEMO 15:00
PROVIDERS: ATTEND Internal Medicine Hematology & Oncology
DX: Z51.11 Encounter for antineoplastic chemotherapy (principal); C50.412 Malignant neoplasm of upper-outer quadrant of left female breast; Z17.0 Estrogen receptor positive status [ER+]
CPT/HCPCS: 36415; 80048; 80076; 85025; 96367; 96375; 96413; 96417; J1453; J2469; J9306; Q5117

== ENCOUNTER 2023-05-20 13:51 | Day surgery (SDC) | payer OTHER ==
[2023-05-20 17:31] VITALS: BP 135/63; PULSE 83; RESP 20; TEMP 98.4
== END 2023-05-20 14:00 | disposition home or self-care (01) ==
LOC: JONCCHEMO 13:51
PROVIDERS: ATTEND Internal Medicine Hematology & Oncology
PROC: 3E013GC Introduction of Other Therapeutic Substance into Subcutaneous Tissue, Percutaneous Approach (ICD-10-PCS; principal; 2023-05-20)
DX: Z76.89 Persons encountering health services in other specified circumstances (principal); Z17.0 Estrogen receptor positive status [ER+]
CPT/HCPCS: 96372; Q5111

== ENCOUNTER 2023-06-09 08:11 | Day surgery (SDC) | payer OTHER ==
[2023-06-09 08:40] LABS: BASO % 0.2 % (0-2.0); HEMATOCRIT 28.1 % (32.4-45.2); HEMOGLOBIN 9.6 GM/dL (10.7-15.3); LYMPH % 9.8 % (8-40); MCH 30.2 pg (25.7-33.7); MCHC 34.3 g/dl (32.0-36.0); MEAN CELL VOLUME 88.1 fl (80-96); MEAN PLT VOLUME 7.1 fl (7.5-11.1); MONO % 1.2 % (3.8-10.2); NEUT % 88.8 % (42.8-82.8); PLATELET COUNT 353 10^3/uL (134-434); RBC 3.19 M/mm3 (3.60-5.2); RDW 16.2 % (11.6-15.6); WHITE BLOOD COUNT 5.4 K/mm3 (4.0-10.0)
[2023-06-09 09:01] LABS: POTASSIUM 4.4 mmol/L (3.5-5.1)
[2023-06-09 09:09] LABS: CALCIUM 9.3 mg/dL (8.5-10.1)
[2023-06-09 09:10] LABS: ALBUMIN 3.6 g/dl (3.4-5.0)
[2023-06-09 09:12] LABS: BLOOD UREA NITROGEN 15.6 mg/dL (7-18)
[2023-06-09 09:13] LABS: BILIRUBIN,DIRECT 0.1 mg/dL (0.0-0.2); CREATININE 0.5 mg/dL (0.55-1.3)
[2023-06-09 09:14] LABS: BILIRUBIN,TOTAL 0.4 mg/dL (0.2-1)
[2023-06-09 09:15] LABS: TOT PROT 7.1 g/dl (6.4-8.2)
[2023-06-09] MEDS ORDERED: DEXAMETHASONE SODIUM PHOSPHATE 10 MG in SODIUM CHLORIDE 50 ML IVPB ONE (10:00)
[2023-06-09] MEDS ORDERED: PALONOSETRON HCL 0.25 MG/5 ML VIAL IVPUSH ONE (10:00)
[2023-06-09] MEDS ORDERED: FOSAPREPITANT DIMEGLUMINE 150 MG in SODIUM CHLORIDE 145 ML IVPB ONE (10:00)
[2023-06-09] MEDS ORDERED: PERTUZUMAB 420 MG in SODIUM CHLORIDE 250 ML IVPB ONE (10:30)
[2023-06-09] MEDS ORDERED: TRASTUZUMAB-ANNS 440 MG in SODIUM CHLORIDE 250 ML IVPB ONE (11:00)
[2023-06-09] MEDS ORDERED: DOCETAXEL 128 MG in SODIUM CHLORIDE 250 ML IV ONE (11:30)
[2023-06-09] MEDS ORDERED: SODIUM CHLORIDE IVPB ONE (12:00)
[2023-06-09] MEDS ORDERED: CARBOPLATIN IVPB ONE (12:00)
[2023-06-09 15:41] VITALS: RESP 18; TEMP 98
[2023-06-09] MEDS ORDERED: PORTA CATH FLUSH 10 ML IVPUSH PRN (15:41)
[2023-06-09 15:42] VITALS: BP 141/57; PULSE 84
== END 2023-06-09 14:30 | disposition home or self-care (01) ==
LOC: JONCCHEMO 08:11 → J7W 08:14 → JONCCHEMO 14:30
PROVIDERS: ATTEND Internal Medicine Hematology & Oncology
DX: Z51.11 Encounter for antineoplastic chemotherapy (principal); C50.412 Malignant neoplasm of upper-outer quadrant of left female breast; Z17.0 Estrogen receptor positive status [ER+]
CPT/HCPCS: 36415; 80048; 80076; 85025; 96367; 96375; 96413; 96417; J1453; J2469; J9306; Q5117

== ENCOUNTER 2023-06-10 14:55 | Day surgery (SDC) | payer OTHER ==
[2023-06-10 15:02] VITALS: BP 128/67; PULSE 79; RESP 18; TEMP 97.7
== END 2023-06-10 15:03 | disposition home or self-care (01) ==
LOC: JONCCHEMO 14:55 → J7W 14:56 → JONCCHEMO 15:03
PROVIDERS: ATTEND Internal Medicine Hematology & Oncology
PROC: 3E013GC Introduction of Other Therapeutic Substance into Subcutaneous Tissue, Percutaneous Approach (ICD-10-PCS; principal; 2023-06-10)
DX: C50.412 Malignant neoplasm of upper-outer quadrant of left female breast (principal); Z76.89 Persons encountering health services in other specified circumstances
CPT/HCPCS: 96372; Q5111

== ENCOUNTER 2023-06-30 09:18 | Day surgery (SDC) | payer OTHER ==
[2023-06-30] MEDS ORDERED: DEXAMETHASONE SODIUM PHOSPHATE 10 MG in SODIUM CHLORIDE 50 ML IVPB ONE (10:00)
[2023-06-30] MEDS ORDERED: PALONOSETRON HCL 0.25 MG/5 ML VIAL IVPUSH ONE (10:00)
[2023-06-30] MEDS ORDERED: FOSAPREPITANT DIMEGLUMINE 150 MG in SODIUM CHLORIDE 145 ML IVPB ONE (10:00)
[2023-06-30] MEDS ORDERED: PERTUZUMAB 420 MG in SODIUM CHLORIDE 250 ML IVPB ONE (10:30)
[2023-06-30 10:55] LABS: BASO % 0.2 % (0-2.0); EOS % 0.1 % (0-4.5); HEMATOCRIT 29.2 % (32.4-45.2); HEMOGLOBIN 9.9 GM/dL (10.7-15.3); LYMPH % 13.2 % (8-40); MCH 30.4 pg (25.7-33.7); MCHC 33.9 g/dl (32.0-36.0); MEAN CELL VOLUME 89.6 fl (80-96); MEAN PLT VOLUME 7.2 fl (7.5-11.1); MONO % 3.9 % (3.8-10.2); NEUT % 82.6 % (42.8-82.8); PLATELET COUNT 419 10^3/uL (134-434); RBC 3.25 M/mm3 (3.60-5.2); RDW 17.6 % (11.6-15.6)
[2023-06-30] MEDS ORDERED: TRASTUZUMAB-ANNS 440 MG in SODIUM CHLORIDE 250 ML IVPB ONE (11:00)
[2023-06-30 11:06] LABS: POTASSIUM 4.7 mmol/L (3.5-5.1)
[2023-06-30 11:08] LABS: CALCIUM 9.6 mg/dL (8.5-10.1)
[2023-06-30 11:09] LABS: ALBUMIN 3.6 g/dl (3.4-5.0); BLOOD UREA NITROGEN 18.1 mg/dL (7-18)
[2023-06-30 11:11] LABS: BILIRUBIN,DIRECT 0.1 mg/dL (0.0-0.2); CREATININE 0.6 mg/dL (0.55-1.3)
[2023-06-30 11:13] LABS: BILIRUBIN,TOTAL 0.2 mg/dL (0.2-1); TOT PROT 7.4 g/dl (6.4-8.2)
[2023-06-30] MEDS ORDERED: SODIUM CHLORIDE IVPB ONE (11:30)
[2023-06-30] MEDS ORDERED: CARBOPLATIN IVPB ONE (11:30)
[2023-06-30 17:34] VITALS: BP 129/58; PULSE 80; RESP 20; TEMP 98.6
[2023-06-30] MEDS ORDERED: PORTA CATH FLUSH 10 ML IVPUSH PRN (17:34)
== END 2023-06-30 14:00 | disposition home or self-care (01) ==
LOC: J7W 09:18 → JONCCHEMO 09:18
PROVIDERS: ATTEND Internal Medicine Hematology & Oncology
DX: Z51.11 Encounter for antineoplastic chemotherapy (principal); C50.412 Malignant neoplasm of upper-outer quadrant of left female breast
CPT/HCPCS: 36415; 80048; 80076; 85025; 96367; 96375; 96413; 96417; J1453; J2469; J9306; Q5117

== ENCOUNTER 2023-07-21 09:01 | Day surgery (SDC) | payer OTHER ==
[2023-07-21] MEDS ORDERED: FOSAPREPITANT DIMEGLUMINE 150 MG in SODIUM CHLORIDE 145 ML IVPB ONE (09:30)
[2023-07-21] MEDS ORDERED: PALONOSETRON HCL 0.25 MG/5 ML VIAL IVPUSH ONE (09:30)
[2023-07-21] MEDS ORDERED: DEXAMETHASONE SODIUM PHOSPHATE 10 MG in SODIUM CHLORIDE 50 ML IVPB ONE (09:30)
[2023-07-21 09:39] LABS: BASO % 0.1 % (0-2.0); HEMATOCRIT 30.5 % (32.4-45.2); HEMOGLOBIN 10.1 GM/dL (10.7-15.3); LYMPH % 12.1 % (8-40); MCH 31.3 pg (25.7-33.7); MCHC 33.1 g/dl (32.0-36.0); MEAN CELL VOLUME 94.6 fl (80-96); MONO % 4.1 % (3.8-10.2); NEUT % 83.7 % (42.8-82.8); PLATELET COUNT 271 10^3/uL (134-434); RBC 3.23 M/mm3 (3.60-5.2); RDW 17.9 % (11.6-15.6)
[2023-07-21 09:56] LABS: POTASSIUM 3.9 mmol/L (3.5-5.1)
[2023-07-21 09:57] LABS: CALCIUM 9.4 mg/dL (8.5-10.1)
[2023-07-21 09:58] LABS: ALBUMIN 3.9 g/dl (3.4-5.0); BLOOD UREA NITROGEN 14.8 mg/dL (7-18)
[2023-07-21] MEDS ORDERED: SODIUM CHLORIDE IVPB ONE (10:00)
[2023-07-21] MEDS ORDERED: CARBOPLATIN IVPB ONE (10:00)
[2023-07-21 10:01] LABS: BILIRUBIN,DIRECT 0.1 mg/dL (0.0-0.2)
[2023-07-21 10:03] LABS: BILIRUBIN,TOTAL 0.3 mg/dL (0.2-1); TOT PROT 7.7 g/dl (6.4-8.2)
[2023-07-21 10:26] LABS: CREATININE 0.6 mg/dL (0.55-1.3)
[2023-07-21] MEDS ORDERED: PERTUZUMAB 420 MG in SODIUM CHLORIDE 250 ML IVPB ONE (10:30)
[2023-07-21] MEDS ORDERED: TRASTUZUMAB-ANNS 440 MG in SODIUM CHLORIDE 250 ML IVPB ONE (11:00)
[2023-07-21 15:47] VITALS: BP 132/61; PULSE 71; RESP 20; TEMP 98.7
[2023-07-21] MEDS ORDERED: PORTA CATH FLUSH 10 ML IVPUSH PRN (15:47)
== END 2023-07-21 13:45 | disposition home or self-care (01) ==
LOC: JONCCHEMO 09:01 → J7W 09:02 → JONCCHEMO 13:45
PROVIDERS: ATTEND Internal Medicine Hematology & Oncology
DX: Z51.11 Encounter for antineoplastic chemotherapy (principal); C50.412 Malignant neoplasm of upper-outer quadrant of left female breast
CPT/HCPCS: 36415; 80048; 80076; 85025; 96367; 96375; 96413; 96417; J1453; J2469; J9306; Q5117

== ENCOUNTER 2023-08-11 08:48 | Day surgery (SDC) | payer OTHER ==
[2023-08-11 09:26] LABS: BASO % 0.4 % (0-2.0); EOS % 1.1 % (0-4.5); HEMOGLOBIN 10.4 GM/dL (10.7-15.3); LYMPH % 36.3 % (8-40); MCH 32.2 pg (25.7-33.7); MCHC 34.6 g/dl (32.0-36.0); MEAN CELL VOLUME 93.2 fl (80-96); MEAN PLT VOLUME 6.8 fl (7.5-11.1); MONO % 9.8 % (3.8-10.2); NEUT % 52.4 % (42.8-82.8); PLATELET COUNT 273 10^3/uL (134-434); RBC 3.22 M/mm3 (3.60-5.2); RDW 15.8 % (11.6-15.6); WHITE BLOOD COUNT 5.2 K/mm3 (4.0-10.0)
[2023-08-11] MEDS ORDERED: DEXAMETHASONE SODIUM PHOSPHATE 10 MG in SODIUM CHLORIDE 50 ML IVPB ONE (09:30)
[2023-08-11] MEDS ORDERED: PALONOSETRON HCL 0.25 MG/5 ML VIAL IVPUSH ONE (09:30)
[2023-08-11] MEDS ORDERED: FOSAPREPITANT DIMEGLUMINE 150 MG in SODIUM CHLORIDE 145 ML IVPB ONE (09:30)
[2023-08-11 09:55] LABS: POTASSIUM 3.8 mmol/L (3.5-5.1)
[2023-08-11 09:59] LABS: BLOOD UREA NITROGEN 22.8 mg/dL (7-18); CALCIUM 9.3 mg/dL (8.5-10.1)
[2023-08-11] MEDS ORDERED: CARBOPLATIN IVPB ONE (10:00)
[2023-08-11] MEDS ORDERED: SODIUM CHLORIDE IVPB ONE (10:00)
[2023-08-11 10:01] LABS: BILIRUBIN,DIRECT 0.1 mg/dL (0.0-0.2)
[2023-08-11 10:02] LABS: BILIRUBIN,TOTAL 0.2 mg/dL (0.2-1); CREATININE 0.6 mg/dL (0.55-1.3); TOT PROT 7.4 g/dl (6.4-8.2)
[2023-08-11 10:05] LABS: ALBUMIN 3.6 g/dl (3.4-5.0)
[2023-08-11] MEDS ORDERED: PERTUZUMAB 420 MG in SODIUM CHLORIDE 250 ML IVPB ONE (10:30)
[2023-08-11] MEDS ORDERED: TRASTUZUMAB-ANNS 440 MG in SODIUM CHLORIDE 250 ML IVPB ONE (11:00)
[2023-08-11 14:19] VITALS: TEMP 98.3
[2023-08-11] MEDS ORDERED: PORTA CATH FLUSH 10 ML IVPUSH PRN (14:27)
[2023-08-11 14:50] VITALS: BP 136/67; PULSE 81; RESP 20
== END 2023-08-11 14:15 | disposition home or self-care (01) ==
LOC: JONCCHEMO 08:48 → J7W 08:49 → JONCCHEMO 14:15
PROVIDERS: ATTEND Internal Medicine Hematology & Oncology
PROC: 3E04305 Introduction of Other Antineoplastic into Central Vein, Percutaneous Approach (ICD-10-PCS; principal; 2023-08-11)
PROC: 3E033GC Introduction of Other Therapeutic Substance into Peripheral Vein, Percutaneous Approach (ICD-10-PCS; 2023-08-11)
DX: Z51.11 Encounter for antineoplastic chemotherapy (principal); C50.412 Malignant neoplasm of upper-outer quadrant of left female breast
CPT/HCPCS: 36415; 80048; 80076; 85025; 96367; 96375; 96413; 96417; J1453; J2469; J9306; Q5117

== ENCOUNTER 2023-10-13 04:16 | Day surgery (SDC) | payer OTHER ==
[2023-10-13] MEDS ORDERED: ISOSULFAN BLUE 50 MG/5 ML VIAL SQ ONE ×2 (07:27→11:17)
[2023-10-13] MEDS ORDERED: LIDOCAINE HCL 1%, 10 MG/ML (20ML VIAL) ONE ×2 (07:27→11:17)
[2023-10-13 07:53] VITALS: BMI 29.5
[2023-10-13] MEDS ORDERED: MIDAZOLAM HCL 2 MG/2 ML SINGLE DOSE VIAL ONE (11:45)
[2023-10-13] MEDS ORDERED: PROPOFOL 40 ML ONE (11:45)
[2023-10-13] MEDS ORDERED: SUCCINYLCHOLINE CHLORIDE 200 MG/10 ML SYRINGE ONE (11:45)
[2023-10-13] MEDS ORDERED: HYDROmorphone HCl 2 MG/ML VIAL ONE (11:55)
[2023-10-13] MEDS: ceFAZolin SODIUM 1 GM VIAL IVPB ONE (12:00)
[2023-10-13] MEDS ORDERED: PROPOFOL 20 ML ONE (12:20)
[2023-10-13] MEDS: LIDOCAINE HCL 1%, 10 MG/ML (20ML VIAL) NR ONE (13:02)
[2023-10-13] MEDS ORDERED: ONDANSETRON 4 MG/2 ML VIAL ONE (13:19)
[2023-10-13] MEDS ORDERED: LIDOCAINE HCL/PF 2% SDV 5ML VIAL ONE (13:19)
[2023-10-13] MEDS ORDERED: ePHEDrine SULFATE 50 MG/1 ML AMPULE ONE (13:19)
[2023-10-13] MEDS ORDERED: DEXAMETHASONE SOD PHOSPHATE 4 MG/1 ML VIAL ONE (13:19)
[2023-10-13] MEDS ORDERED: KETOROLAC TROMETHAMINE 30 MG/1 ML VIAL ONE (13:19)
[2023-10-13] MEDS ORDERED: ceFAZolin SODIUM 1 GM VIAL ONE (13:19)
[2023-10-13] MEDS ORDERED: PHENYLEPHRINE HCL 10 MG/1 ML SINGLE DOSE VIAL ONE (13:19)
[2023-10-13] MEDS ORDERED: ONDANSETRON 4 MG/2 ML VIAL IVPUSH PRN (13:48)
[2023-10-13 17:28] VITALS: RESP 20
[2023-10-14 06:53] VITALS: BP 109/55; PULSE 69; TEMP 98.5
== END 2023-10-14 11:21 | disposition home or self-care (01) ==
LOC: JASU-SURG 04:16 → JASUSAT 04:16 → J5S 19:51 → JASUSAT 10-14 11:21
PROVIDERS: ATTEND Surgery
PROC: C71LYZZ Planar Nuclear Medicine Imaging of Upper Chest Lymphatics using Other Radionuclide (ICD-10-PCS; 2023-10-13)
PROC: 0HBV0ZZ Excision of Bilateral Breast, Open Approach (ICD-10-PCS; principal; 2023-10-13 10:00)
PROC: 07B60ZX Excision of Left Axillary Lymphatic, Open Approach, Diagnostic (ICD-10-PCS; 2023-10-13 10:00)
DX: C50.912 Malignant neoplasm of unspecified site of left female breast (principal); D24.1 Benign neoplasm of right breast
CPT/HCPCS: 19281; 76098-TC-FY; 78195-TC; 88307-TC; 88342-TC; 94010; 94760; A9541

== ENCOUNTER 2024-04-11 05:11 | Day surgery (SDC) | payer OTHER ==
[2024-04-11 10:04] VITALS: BMI 29.1
[2024-04-11] MEDS: LIDOCAINE HCL 1%, 10 MG/ML (20ML VIAL) INF ONE (12:29)
[2024-04-11 13:05] VITALS: BP 132/72; PULSE 60; RESP 17; TEMP 98.6
[2024-04-11] MEDS ORDERED: ACETAMINOPHEN 500 MG TABLET (FP) ONE (13:15)
[2024-04-11] MEDS: ACETAMINOPHEN 500 MG TABLET (FP) PO ONE (13:39)
== END 2024-04-11 13:48 | disposition home or self-care (01) ==
LOC: JASU-SURG 05:11
PROVIDERS: ATTEND Surgery
PROC: 0JPT0WZ Removal of Totally Implantable Vascular Access Device from Trunk Subcutaneous Tissue and Fascia, Open Approach (ICD-10-PCS; principal; 2024-04-11 12:30)
DX: C50.919 Malignant neoplasm of unspecified site of unspecified female breast (principal)